=== PATIENT | female | born 1940 | race Caucasian/White ===

== ENCOUNTER 2018-02-12 15:08 | Emergency (ER) | payer MEDICARE, BC ==
[2018-02-12] MEDS ORDERED: Sodium Chloride 0.9% 10 ML Syringe FLUSH PRN (15:19)
--- NOTE | 2018-02-12 15:48 | EDM.PDOC ---
ED HPI GENERAL MEDICAL PROBLEM - General Chief Complaint: Chest Pain Stated Complaint: TOLD TO COME TO THE ER BY DOCTOR Time Seen by Provider: 02/12/18 15:19 Source of Information: Reports: Patient, RN Notes Reviewed - History of Present Illness INITIAL COMMENTS - FREE TEXT/NARRATIVE: 77-year-old lady has been transferred here from [facility] by her regular physician Dr. Yun. She has been having what sounds like accelerated unstable angina over the past couple of weeks. She has been having 3 to 4 minute episodes of chest pain with very minimal exertion such as making a bad or showering that typically have not caused chest discomfort in the past. She does have history of hypertension, coronary artery disease, has had previous IL many years ago, has multiple stents. She has hx of type 2 diabetes, is on multiple meds for Htn, ASA, plavix, metformin, lipitor in addition to her other meds. She has no chest pain at this time. No abdominal pain, no nausea vomiting. History of prior gastric hemorrhage history of prior ischemic bowel. Chest Pain Score (Numeric/FACES): 0 - Related Data Allergies Allergy/AdvReac Type Severity Reaction Status Date / Time ticlopidine Allergy Unknown Cannot Verified 02/12/18 15:20 Remember Home Meds: Home Meds Aspirin [Halfprin] 81 mg PO DAILY 01/08/14 [History] Clopidogrel [Plavix] 75 mg PO DAILY 01/08/14 [History] Levothyroxine [Synthroid] 50 mcg PO DAILY 01/08/14 [History] Metoprolol Tartrate 50 mg PO DAILY 01/08/14 [History] Omeprazole [Prilosec] 40 mg PO BID 01/08/14 [History] amLODIPine Besylate [Amlodipine Besylate] 2.5 mg PO DAILY 01/08/14 [History] atorvaSTATin [Lipitor] 40 mg PO DAILY 01/08/14 [History] metFORMIN [Glucophage] 1,000 mg PO BID 01/08/14 [History] Calcium Carbonate [Calcium] 600 mg PO DAILY 06/03/16 [History] Furosemide [Lasix] 40 mg PO DAILY 06/03/16 [History] Lisinopril 40 mg PO DAILY 06/03/16 [History] Multivitamin [Multivitamins] 1 cap PO DAILY 06/03/16 [History] Past Medical History HEENT History: Reports: Cataract Cardiovascular History: Reports: CAD, High Cholesterol, Hypertension, [place] Gastrointestinal History: Reports: GERD, Other (See Below) TRADE SPECIALIST History: Reports: Musculoskeletal History: Reports: Osteoarthritis, Osteoporosis Endocrine/Metabolic History: Reports: Diabetes, Type II, Hypothyroidism Hematologic History: Reports: Blood Transfusion(s) - Past Surgical History HEENT Surgical History: Reports: Cataract Surgery, Oral Surgery Cardiovascular Surgical History: Reports: Coronary Artery Stent GI Surgical History: Reports: Hernia, Abdominal, Other (See Below) Female Surgical History: Reports: Section, Hysterectomy, Salpingo- Oophorectomy Social & Family History - Living Situation & Occupation Living situation: Reports: , with Spouse, with Family Occupation: Employed ED ROS GENERAL - Review of Systems Review Of Systems: See Below Constitutional: Denies: Fever, Chills, Weakness HEENT: Denies: Throat Pain Respiratory: Denies: Shortness of Breath, Wheezing, Pleuritic Chest Pain Cardiovascular: Reports: Chest Pain (Intermittent for the last 2-3 weeks). Denies: Dyspnea on Exertion, Lightheadedness GI/Abdominal: Denies: Abdominal Pain, Nausea, Vomiting Musculoskeletal: Reports: Arm Pain (When she does get chest discomfort does radiate to the left shoulder and left arm). Denies: Neck Pain, Shoulder Pain, Leg Pain Skin: Denies: Rash Neurological: Denies: Numbness, Tingling, Trouble Speaking, Difficulty Walking, Weakness ED EXAM, GENERAL - Physical Exam Exam: See Below General Appearance: Alert, No Apparent Distress Eye Exam: Bilateral Eye: PERRL Throat/Mouth: Normal Inspection, Normal Oropharynx Head: Atraumatic. No: Facial Swelling Neck: Supple, Full Range of Motion Respiratory/Chest: No Respiratory Distress, Lungs Clear, Normal Breath Sounds Cardiovascular: Regular Rate, Rhythm GI/Abdominal: Soft, Non-Tender Back Exam: No: CVA Tenderness (L), CVA Tenderness (R) Extremities: Normal Inspection. No: Pedal Edema, Leg Pain Neurological: Alert, Oriented, No Motor/Sensory Deficits Skin Exam: Warm, Dry, Normal Color, No Rash EKG INTERPRETATION EKG Date: 02/12/18 Rhythm: NSR Kincaid: Normal P-Wave: Present QRS: LBBB ST-T: Depressed (T wave inversion and st depression V5 and V6) Course - Vital Signs Last Recorded V/S: Last Vital Signs Temp 97.9 F 02/12/18 15:20 Pulse 64 02/12/18 17:23 Resp 14 02/12/18 15:20 BP 185/74 H 02/12/18 17:23 Pulse Ox 100 02/12/18 15:20 - Orders/Labs/Meds Orders: Active Orders 24 hr Category Date Time Status EKG 12 Lead [EKG Documentation Completion] [RC] STAT Care 02/12/18 15:20 Active Peripheral IV Care [RC] . DIRECTED Care 02/12/18 15:21 Active Chest 1V Frontal [CR] Stat Exams 02/12/18 15:20 Taken Peripheral IV Insertion Adult [OM.PC] Stat Oth 02/12/18 15:21 Ordered Labs: Laboratory Tests 02/12/18 02/12/18 Range/Units 15:40 15:40 WBC 7.60 (3.98-10.04) K/mm3 RBC 4.78 (3.98-5.22) M/mm3 Hgb 14.5 (11.2-15.7) gm/L Hct 44.6 (34.1-44.9) % MCV 93.3 (79.4-94.8) fl MCH 30.3 (25.6-32.2) pg MCHC 32.5 (32.2-35.5) g/dl RDW Std Deviation 48.0 H (36.4-46.3) fL Plt Count 196 (182-369) K/mm3 MPV 10.8 (9.4-12.3) fl Neut % (Auto) 61.6 (34.0-71.1) % Lymph % (Auto) 26.7 (19.3-51.7) % Beaver % (Auto) 9.5 (4.7-12.5) % Eos % (Auto) 1.6 (0.7-5.8) Baso % (Auto) 0.3 (0.1-1.2) % Neut # (Auto) 4.69 (1.56-6.13) K/mm3 Lymph # (Auto) 2.03 (1.18-3.74) K/mm3 Beaver # (Auto) 0.72 H (0.24-0.36) K/mm3 Eos # (Auto) 0.12 (0.04-0.36) K/mm3 Baso # (Auto) 0.02 (0.01-0.08) K/mm3 Sodium 141 (136-145) mEq/L Potassium 3.8 (3.5-5.1) mEq/L Chloride 101 (98-107) mEq/L Carbon Dioxide 31 (21-32) mEq/L Anion Gap 12.8 (5-15) BUN 27 H (7-18) mg/dL Creatinine 1.0 (0.55-1.02) mg/dL Est Cr Clr Drug Dosing 45.50 mL/min Estimated GFR (MDRD) 54 (>60) mL/min BUN/Creatinine Ratio 27.0 H (14-18) Glucose 117 H (83-115) mg/dL Calcium 10.0 (8.5-10.1) mg/dL Total Bilirubin 0.6 (0.2-1.0) mg/dL AST 24 (15-37) U/L ALT 30 (14-59) U/L Alkaline Phosphatase 128 H (46-116) U/L Troponin I < 0.017 (0.00-0.056) ng/mL Total Protein 8.1 (6.4-8.2) g/dl Albumin 4.2 (3.4-5.0) g/dl Globulin 3.9 gm/dL Albumin/Globulin Ratio 1.1 (1-2) Meds: Medications Discontinued Medications Generic Name Dose Route Start Last Admin Trade Name Freq PRN Reason Stop Dose Admin Heparin Sodium (Porcine) 4,000 units 02/12/18 17:35 02/12/18 17:52 Heparin Sodium IVPUSH 02/12/18 17:36 4,000 units ONETIME ONE Administration Heparin Sodium/Dextrose 25,000 units in 500 mls @ 16 mls/hr 02/12/18 17:45 17:52 Heparin 25,000 Units In D5w 500 Ml IV 800 units/hr STAT REYNALDO 16 mls/hr Administration Protocol 800 UNITS/HR Metoprolol Tartrate 50 mg 02/12/18 17:10 02/12/18 17:23 Lopressor PO 02/12/18 17:11 50 mg ONETIME ONE Administration Sodium Chloride 10 ml 02/12/18 15:19 02/12/18 15:52 Saline Flush FLUSH 10 ml ASDIRECTED PRN Administration Keep Vein Open - Re-Assessments/Exams Free Text/Narrative Re-Assessment/Exam: 02/12/18 19:08 had requested patient be evaluated here, admitted for observation and cardiac stress test. While awaiting labs family decided they would like to have patient transfered to [facility] based on hx of known CAD, IL 22 years ago, hx of prior stents, hx of Ischemic bowel, hx of prior severe GI Hemorrhage. I have discussed with Dr Almaraz, Hospitalist [facility] who does accept patient in transfer. She remains pain free while in the ED, sinus rythm, no ectopy, troponin normal, CXR normal. Dr Almaraz does request we give a heparin bolus and start on heparin drip which was done. Departure - Departure Time of Disposition: 17:45 Disposition: DC/Tfer to [facility] 02 Reason for Transfer *Q: Other Condition: Fair Clinical Impression: Accelerating angina Referrals: Keven Yun MD [Primary Care Provider] - Forms: ED Department Discharge - My Orders Last 24 Hours: My Active Orders 02/12/18 15:20 EKG 12 Lead [EKG Documentation Completion] [RC] STAT Chest 1V Frontal [CR] Stat 02/12/18 15:21 Peripheral IV Care [RC] . DIRECTED Peripheral IV Insertion Adult [OM.PC] Stat - Assessment/Plan Last 24 Hours: My Active Orders 02/12/18 15:20 EKG 12 Lead [EKG Documentation Completion] [RC] STAT Chest 1V Frontal [CR] Stat 02/12/18 15:21 Peripheral IV Care [RC] . DIRECTED Peripheral IV Insertion Adult [OM.PC] Stat
[2018-02-12] MEDS ORDERED: Metoprolol Tartrate 50 MG Tab PO ONE (17:10)
[2018-02-12 17:25] VITALS: BP 185/74
[2018-02-12] MEDS ORDERED: Heparin Sodium 5,000 Units/ML Vial IVPUSH ONE (17:35)
[2018-02-12] MEDS ORDERED: Heparin Sodium/D5W 25,000 UNITS/500 ML BAG IV SCH (17:45)
--- NOTE | 2018-02-13 08:35 | CR ---
Chest: Portable view of the chest was obtained. Comparison: Prior chest x-ray of 01/08/14. Heart is slightly enlarged. Tortuous thoracic aorta is seen. Lungs are clear without acute parenchymal change. Bony structures are grossly intact. Lungs appears hyperinflated compatible with emphysematous change. Impression: 1. Lungs are hyperinflated suggesting emphysematous change. 2. Heart size mildly enlarged. 3. Nothing acute is otherwise seen on portable chest x-ray. Diagnostic code #3
== END 2018-02-12 18:20 ==
LOC: JD.ED 15:08
DX: I20.0 Unstable angina (principal); E78.00 Pure hypercholesterolemia, unspecified; I10 Essential (primary) hypertension; K21.9 Gastro-esophageal reflux disease without esophagitis; E03.9 Hypothyroidism, unspecified; E11.9 Type 2 diabetes mellitus without complications; Z88.8 Allergy status to other drugs, medicaments and biological substances; Z79.82 Long term (current) use of aspirin; Z79.899 Other long term (current) drug therapy; Z79.01 Long term (current) use of anticoagulants
CPT/HCPCS: 36415; 71045; 80053; 84484; 85025; 93005; 96365; 99285; A9270; J1644; J7050; 93010

== ENCOUNTER 2018-06-05 06:52 | Day surgery (SDC) | payer MEDICARE, BC ==
[~2018-06-05 06:52] MED LIST: Lactated Ringers 1,000 ML IV SCH; Lidocaine 1%/Sod Bicarbonate in NS 8.4% 1 ML Syringe IDERM PRN; Sodium Chloride 0.9% 10 ML Syringe FLUSH PRN
--- NOTE | 2018-06-05 07:26 | PCM.PREANE ---
Preanesthetic Assessment - Procedure Proposed Procedure: excision of skin lesions forehead - Anesthesia/Transfusion/Family Hx Anesthesia History: Prior Anesthesia Without Reaction Family History of Anesthesia Reaction: No Transfusion History: Prior Transfusion Without Reaction - Review of Systems General: No Symptoms Pulmonary: No Symptoms Cardiovascular: No Symptoms Gastrointestinal: No Symptoms Neurological: No Symptoms Other: Reports: Thyroid Problems - Physical Assessment NPO Status Date: 06/04/18 NPO Status Time: 19:00 Pulse: 67 O2 Sat by Pulse Oximetry: 99 Respiratory Rate: 16 Blood Pressure: 154/65 Temperature: 98.3 F Height: 5 ft 5 in Weight: 68 kg ASA Class: 3 Mental Status: Alert & Oriented x3 Airway Class: Mallampati = 1 Dentition: Reports: Dentures (top and 1 tooth on thte bottom) Thyro-Mental Finger Breadths: 3 Mouth Opening Finger Breadths: 3 ROM/Head Extension: Full Lungs: Clear to Auscultation, Normal Respiratory Effort Cardiovascular: Regular Rate, Regular Rhythm - Allergies Allergies/Adverse Reactions: Allergies Allergy/AdvReac Type Severity Reaction Status Date / Time ticlopidine Allergy Unknown Cannot Verified 06/04/18 13:22 Remember carvedilol [From Coreg] Allergy Lightheaded Verified 06/04/18 13:22 ness - Blood Blood Available: No - Anesthesia Plan Beta Papa: Metoprolol Med Last Dose Date: 06/05/18 Med Last Dose Time: 06:00 - Acknowledgements Anesthesia Type Planned: MAC Pt an Appropriate Candidate for the Planned Anesthesia: Yes Alternatives and Risks of Anesthesia Discussed w Pt/Guardian: Yes Pt/Guardian Understands and Agrees with Anesthesia Plan: Yes PreAnesthesia Questionnaire HEENT History: Reports: Hard of Hearing, Impaired Vision Other HEENT History: wears eyeglasses and hearing aids Cardiovascular History: Reports: Afib, CAD, High Cholesterol, Hypertension, [place], Stents (stent in january 2018), Other (See Below) Other Cardiovascular History: Raynaud's phenomenon. 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 Hematologic History: Reports: Anemia, Blood Transfusion(s) Immunologic History: Reports: None Oncologic (Cancer) History: Reports: None Dermatologic History: Reports: None - Infectious Disease History Infectious Disease History: Reports: Chicken Pox, Measles, Shingles - Past Surgical History Head Surgeries/Procedures: Reports: None HEENT Surgical History: Reports: Cataract Surgery, Oral Surgery Cardiovascular Surgical History: Reports: Coronary Artery Stent, Vascular Surgery Other Cardiovascular Surgeries/Procedures: angiogram. Angioplasty with 2 stents --jan 2018 Respiratory Surgical History: Reports: None GI Surgical History: Reports: Colon, EGD, Hernia, Abdominal Other GI Surgeries/Procedures: 3 abdominal surgeries, perforated bowel, bowel removed. Female Surgical History: Reports: Section, Hysterectomy, Salpingo- Oophorectomy Endocrine Surgical History: Reports: None Neurological Surgical History: Reports: C-Spine Musculoskeletal Surgical History: Reports: ORIF Other Musculoskeletal Surgeries/Procedures:: neck surgery. Oncologic Surgical History: Reports: None Dermatological Surgical History: Reports: None - SUBSTANCE USE Smoking Status *Q: Former Smoker (quit 1995) Tobacco Use Within Last Twelve Months: No Second Hand Smoke Exposure: No Days Per Week of Alcohol Use: 0 Recreational Drug Use History: No - HOME MEDS Home Medications: Home Meds Clopidogrel [Plavix] 75 mg PO DAILY 01/08/14 [History] Multivitamin [Multivitamins] 1 cap PO DAILY 06/03/16 [History] Apixaban [Eliquis] 5 mg PO BID 03/11/18 [History] Nitroglycerin 0.4 mg SL ASDIRECTED PRN 03/11/18 [History] Calcium Carbonate/Vitamin D3 [Calcium 600 + Vit D 400 Softgl] 1 cap PO DAILY [History] Lactobacillus Reuteri [Biogaia Gastrus] 1 tab PO DAILY 05/07/18 [History] Levothyroxine 75 mcg PO DAILY 05/07/18 [History] Pantoprazole [ProTONIX] 40 mg PO DAILY 05/07/18 [History] Furosemide [Lasix] 20 mg PO DAILY 06/04/18 [History] Metoprolol Tartrate 12.5 mg PO BID 06/04/18 [History] atorvaSTATin Calcium [Lipitor] 40 mg PO DAILY 06/04/18 [History] Losartan [Cozaar] 50 mg PO DAILY 06/05/18 [History] - CURRENT (IN HOUSE) MEDS Current Meds: Current Medications Lactated Ringer's (Ringers, Lactated) 1,000 mls @ 125 mls/hr IV ASDIRECTED REYNALDO Lidocaine/Sodium Bicarbonate (Buffered Lidocaine 1% In Ns 8.4%) 0.25 ml IDERM ONETIME PRN PRN Reason: Prior to IV Start Sodium Chloride (Saline Flush) 10 ml FLUSH ASDIRECTED PRN PRN Reason: Keep Vein Open
[2018-06-05] MEDS ORDERED: Midazolam 1 MG/ML 2 ML SDV ONE (07:33)
[2018-06-05] MEDS ORDERED: fentaNYL 100 MCG/2 ML SDV ONE (07:33)
[2018-06-05] MEDS ORDERED: Lidocaine 1% with EPINEPHrine 1:100,000 20 ML MDV ONE (08:00)
[2018-06-05] MEDS ORDERED: Bacitracin Oint 15 GM Tube ONE (08:32)
--- NOTE | 2018-06-05 08:56 | PCM.OPNOTE ---
- General Post-Op/Procedure Note Date of Surgery/Procedure: 06/05/18 Operative Procedure(s): excision of forehead lesions Findings: forehead raised lesions on right and left forehead, each with cutaneous Pre Op Diagnosis: forehead skin lesions Post-Op Diagnosis: same Anesthesia Technique: Moderate Sedation Primary Surgeon: Isi Don Anesthesia Provider: Steffen Chandra Pathology: 1. Right forehead lesion 2. Left forehead lesion Fluid Replacement, Intraop: 400 EBL in mLs: 5 Complications: None apparent Condition: Good
--- NOTE | 2018-06-05 08:57 | PCM48HPAN ---
Post Anesthesia Note - EVALUATION WITHIN 48HRS OF ANESTHETIC Vital Signs in Normal Range: Yes Patient Participated in Evaluation: Yes Respiratory Function Stable: Yes Airway Patent: Yes Cardiovascular Function Stable: Yes Hydration Status Stable: Yes Pain Control Satisfactory: Yes Nausea and Vomiting Control Satisfactory: Yes Mental Status Recovered: Yes Pulse Rate: 64 SaO2: 93 Resp Rate: 15 Temperature: 98.4 F Blood Pressure: 142/52
--- NOTE | 2018-06-05 09:03 | PCM.PRNOTE ---
- Free Text/Narrative Note: Operative Report Date of surgery: June 05, 2018 Preoperative diagnosis: forehead skin lesions Postoperative diagnosis: same Procedure: excision forehead skin lesions Surgeon: Dr. Isi Don Anesthesia: Moderate sedation with monitored anesthesia care (due to her multiple medical comorbidities including recent cardiac stenting) Investigator: Steffen Chandra CRNA Estimated blood loss: 5 mL IV fluids: 400 mL Urine output: 0 mL Drains and lines: None Findings: 6 mm x 10 mm irregular lesion on the right forehead with cutaneous horn covering the lesion, 5 mm x 4 mm cutaneous horn covered lesion on the left forehead Pathology: . 1. Right forehead lesion with short stitch and appear margin and long stitch on lateral margin 2. Left forehead lesion Indication for the procedure: The patient is a 77-year-old female presents by office complaining of skin lesions on her forehead. She is concerned about malignant potential. She also dislikes the cord appearance of these lesions. She is requesting removal. We discussed doing that excision with very light sedation in the operating room as she has anticoagulation for her medical comorbidities. In addition, she has had cardiac stenting within the last 6 months and it is not advisable to stop Plavix at this time. We discussed risks of bleeding and infection, and her written consent was obtained. Description of the procedure: The patient was taken back to the operating room and placed in supine position on the operating table. Light sedation was administered. The patient was then prepped and draped in standard surgical fashion and a timeout was performed. We began by infiltrating local anesthetic to the right forehead lesion. This area was then marked with an elliptical incision 6mm x 24mm. A scalpel was used to incise the skin and into combination of sharp dissection with the scalpel and the Bovie device was used to remove the lesion. This was marked and sent for pathology. Hemostasis was achieved using the Bovie device and pressure. The tissue defect was 2 mm deep. We then turned our attention to the left forehead lesion. It was measured and marked with an elliptical incision 4 mm x 12 mm and then the skin was infiltrated with local anesthetic. We proceeded to excise the lesion. Using combination of the scalpel and Bovie device. Hemostasis was achieved using the Bovie device. The tissue defect was 2 mm deep. We again held pressure in this area for added hemostasis. The incisions were closed using interrupted 5-0 nylon sutures. The sutures were covered with bacitracin and a dry dressing. The patient tolerated the procedure well, was transported to recovery area in stable condition Isi Don MD General Surgery
[2018-06-05 10:34] VITALS: BP 130/55
== END 2018-06-05 09:40 | disposition home or self-care (01) ==
LOC: JD.SDS 06:52
PROVIDERS: ATTEND Surgery
DX: C44.329 Squamous cell carcinoma of skin of other parts of face (principal); L57.0 Actinic keratosis; J44.9 Chronic obstructive pulmonary disease, unspecified; K21.9 Gastro-esophageal reflux disease without esophagitis; E11.51 Type 2 diabetes mellitus with diabetic peripheral angiopathy without gangrene; E78.00 Pure hypercholesterolemia, unspecified; E78.5 Hyperlipidemia, unspecified; E03.9 Hypothyroidism, unspecified; I10 Essential (primary) hypertension; I25.10 Atherosclerotic heart disease of native coronary artery without angina pectoris; I25.2 Old myocardial infarction; I48.91 Unspecified atrial fibrillation; M19.90 Unspecified osteoarthritis, unspecified site; M81.0 Age-related osteoporosis without current pathological fracture; D64.9 Anemia, unspecified; Z79.02 Long term (current) use of antithrombotics/antiplatelets; Z79.890 Hormone replacement therapy; Z79.899 Other long term (current) drug therapy; Z88.8 Allergy status to other drugs, medicaments and biological substances; Z87.891 Personal history of nicotine dependence
CPT/HCPCS: 11442; 11643; A9270; J2250; J3010; J7120; 00300

== ENCOUNTER 2018-06-29 07:05 | Day surgery (SDC) | payer MEDICARE, BC ==
[~2018-06-29 07:05] MED LIST changes: +Lidocaine 1% 2 ML ONE; +Midazolam 1 MG/ML 2 ML SDV ONE; +Propofol 200 MG/20 ML SDV ONE
[2018-06-29] MEDS ORDERED: fentaNYL 100 MCG/2 ML SDV ONE (07:06)
[2018-06-29] MEDS ORDERED: Bupivacaine 0.5% 30 ML SDV ONE (07:09)
[2018-06-29] MEDS ORDERED: Lidocaine 1% with EPINEPHrine 1:100,000 20 ML MDV ONE (07:09)
--- NOTE | 2018-06-29 07:27 | PCM.PREANE ---
Preanesthetic Assessment - Anesthesia/Transfusion/Family Hx Anesthesia History: Prior Anesthesia Without Reaction Family History of Anesthesia Reaction: No Transfusion History: Prior Transfusion Without Reaction - Review of Systems General: No Symptoms Pulmonary: No Symptoms Cardiovascular: No Symptoms Gastrointestinal: No Symptoms Neurological: No Symptoms Other: Reports: None - Physical Assessment NPO Status Date: 06/28/18 NPO Status Time: 20:00 Pulse: 62 O2 Sat by Pulse Oximetry: 94 Respiratory Rate: 16 Blood Pressure: 159/59 Temperature: 98.8 C ASA Class: 3 Mental Status: Alert & Oriented x3 Airway Class: Mallampati = 2 Dentition: Reports: Dentures, Partial (upper denture, lower partial) Thyro-Mental Finger Breadths: 3 Mouth Opening Finger Breadths: 3 ROM/Head Extension: Full Lungs: Clear to Auscultation, Normal Respiratory Effort Cardiovascular: Regular Rate, Regular Rhythm (pt states she does have atrial fib at times) - Allergies Allergies/Adverse Reactions: Allergies Allergy/AdvReac Type Severity Reaction Status Date / Time ticlopidine Allergy Unknown Cannot Verified 06/26/18 09:49 Remember carvedilol [From Coreg] Allergy Lightheaded Verified 06/26/18 09:49 ness - Anesthesia Plan Beta Papa: Metoprolol Med Last Dose Date: 06/29/18 Med Last Dose Time: 06:00 - Acknowledgements Anesthesia Type Planned: MAC Pt an Appropriate Candidate for the Planned Anesthesia: Yes Alternatives and Risks of Anesthesia Discussed w Pt/Guardian: Yes Pt/Guardian Understands and Agrees with Anesthesia Plan: Yes PreAnesthesia Questionnaire HEENT History: Reports: Hard of Hearing, Impaired Vision Other HEENT History: wears eyeglasses and hearing aids Cardiovascular History: Reports: Afib (pt states afib is intermittent), CAD, High Cholesterol, Hypertension, [place] (1995), Stents, Other (See Below) Other Cardiovascular History: Raynaud's phenomenon. 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 Hematologic History: Reports: Anemia, Blood Transfusion(s) Immunologic History: Reports: None Oncologic (Cancer) History: Reports: None, Squamous Cell Carcinoma Dermatologic History: Reports: None - Infectious Disease History Infectious Disease History: Reports: Chicken Pox, Measles, Shingles - Past Surgical History Head Surgeries/Procedures: Reports: None HEENT Surgical History: Reports: Cataract Surgery, Oral Surgery Cardiovascular Surgical History: Reports: Coronary Artery Stent, Vascular Surgery Other Cardiovascular Surgeries/Procedures: angiogram. Angioplasty with 2 stents --jan 2018 Respiratory Surgical History: Reports: None GI Surgical History: Reports: Colon, EGD, Hernia, Abdominal Other GI Surgeries/Procedures: 3 abdominal surgeries, perforated bowel, bowel removed. Female Surgical History: Reports: Section, Hysterectomy, Salpingo- Oophorectomy Endocrine Surgical History: Reports: None Neurological Surgical History: Reports: C-Spine Musculoskeletal Surgical History: Reports: ORIF Other Musculoskeletal Surgeries/Procedures:: neck surgery. Oncologic Surgical History: Reports: None Dermatological Surgical History: Reports: Other (See Below) - SUBSTANCE USE Smoking Status *Q: Former Smoker Recreational Drug Use History: No - HOME MEDS Home Medications: Home Meds Clopidogrel [Plavix] 75 mg PO DAILY 01/08/14 [History] Multivitamin [Multivitamins] 1 cap PO DAILY 06/03/16 [History] Apixaban [Eliquis] 5 mg PO BID 03/11/18 [History] Nitroglycerin 0.4 mg SL ASDIRECTED PRN 03/11/18 [History] Calcium Carbonate/Vitamin D3 [Calcium 600 + Vit D 400 Softgl] 1 cap PO DAILY [History] Lactobacillus Reuteri [Biogaia Gastrus] 1 tab PO DAILY 05/07/18 [History] Levothyroxine 75 mcg PO DAILY 05/07/18 [History] Pantoprazole [ProTONIX] 40 mg PO DAILY 05/07/18 [History] Furosemide [Lasix] 20 mg PO DAILY 06/04/18 [History] Metoprolol Tartrate 12.5 mg PO BID 06/04/18 [History] atorvaSTATin Calcium [Lipitor] 40 mg PO DAILY 06/04/18 [History] Losartan [Cozaar] 50 mg PO DAILY 06/05/18 [History] - CURRENT (IN HOUSE) MEDS Current Meds: Current Medications Lactated Ringer's (Ringers, Lactated) 1,000 mls @ 125 mls/hr IV ASDIRECTED REYNALDO Stop: 06/29/18 23:00 Lidocaine/Sodium Bicarbonate (Buffered Lidocaine 1% In Ns 8.4%) 0.25 ml IDERM ONETIME PRN PRN Reason: Prior to IV Start Stop: 06/29/18 18:00 Sodium Chloride (Saline Flush) 10 ml FLUSH ASDIRECTED PRN PRN Reason: Keep Vein Open Stop: 06/29/18 18:00 Discontinued Medications Bupivacaine HCl (Marcaine 0.5%) Confirm Administered Dose 30 ml .ROUTE .STK-MED ONE Stop: 06/29/18 07:10 Fentanyl (Sublimaze) Confirm Administered Dose 100 mcg .ROUTE .STK-MED ONE Stop: 06/29/18 07:07 Lidocaine HCl (Xylocaine-Mpf 1%) Confirm Administered Dose 2 mls @ as directed .ROUTE .STK-MED ONE Stop: 06/29/18 07:05 Lidocaine HCl (Xylocaine-Mpf 1%) Confirm Administered Dose 2 mls @ as directed .ROUTE .STK-MED ONE Stop: 06/29/18 07:05 Lidocaine/Epinephrine (Xylocaine 1% With Epinephrine 1:100,000) Confirm Administered Dose 20 ml .ROUTE .STK-MED ONE Stop: 06/29/18 07:10 Midazolam HCl (Versed 1 Mg/Ml) Confirm Administered Dose 2 mg .ROUTE .STK-MED ONE Stop: 06/29/18 07:06 Propofol (Diprivan 20 Ml) Confirm Administered Dose 200 mg .ROUTE .STK-MED ONE Stop: 06/29/18 07:05
[2018-06-29] MEDS ORDERED: Bacitracin Oint 15 GM Tube ONE (07:35)
--- NOTE | 2018-06-29 09:13 | PCM.OPNOTE ---
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
--- NOTE | 2018-06-29 09:17 | PCM.PRNOTE ---
- Free Text/Narrative Note: Operative Report Date of surgery: June 29, 2018 Preoperative diagnosis: . 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 Isi Don Anesthesia: [facility] [place] [employer] Operator: . Yocasta Yoon CRNA Estimated blood loss: 10 mL IV fluids: 750 mL Urine output: 0 mL Drains and lines: None Findings: Area of previous excision on the right forehead with scab centrally Pathology: . Squamous cell carcinoma with surrounding skin Indication for the procedure: . The patient is a 77-year-old lady who had presented to my office complaining of a cutaneous horns lesion on her right forehead. She wanted this removed. We excised the lesion, but pathology returned results of squamous cell carcinoma with positive margins. The patient was counseled for reexcision and frozen section. Her written consent was obtained. Description of the procedure: The patient was seen back to the operating room and placed in supine position on the operating table. She had successful induction of MAC anesthesia. She was prepped and draped in standard surgical fashion and a timeout was performed. We began by injecting local anesthetic of 1% lidocaine with epinephrine and the lesion marked on her right forehead. The skin was then excised using a 15 blade scalpel in an elliptical fashion around the area of the previous scar containing the scab and some surrounding normal skin. Care was taken to excise tissue on the deep margin. Hemostasis was then achieved using pressure and the Bovie device. The specimen was marked and sent to pathology. Frozen section revealed negative margins. The wound was then closed using interrupted simple 5-0 nylon sutures. Bacitracin and a dry dressing was applied. The patient tolerated the procedure well. She was awakened from MAC anesthesia and transported to the recovery area in stable condition. Isi Don MD General Surgery
--- NOTE | 2018-06-29 10:00 | PCM48HPAN ---
Post Anesthesia Note - EVALUATION WITHIN 48HRS OF ANESTHETIC Vital Signs in Normal Range: Yes Patient Participated in Evaluation: Yes Respiratory Function Stable: Yes Airway Patent: Yes Cardiovascular Function Stable: Yes Hydration Status Stable: Yes Pain Control Satisfactory: Yes Nausea and Vomiting Control Satisfactory: Yes Mental Status Recovered: Yes Pulse Rate: 60 SaO2: 94 Resp Rate: 14 Temperature: 98.8 C Blood Pressure: 124/57 Pulse Rate: 60
[2018-06-29 11:01] VITALS: BP 145/59
== END 2018-06-29 09:55 | disposition home or self-care (01) ==
LOC: JD.SDS 07:05
PROVIDERS: ATTEND Surgery
DX: C44.329 Squamous cell carcinoma of skin of other parts of face (principal); I10 Essential (primary) hypertension; E11.9 Type 2 diabetes mellitus without complications; J44.9 Chronic obstructive pulmonary disease, unspecified; I48.0 Paroxysmal atrial fibrillation; E03.9 Hypothyroidism, unspecified; I25.10 Atherosclerotic heart disease of native coronary artery without angina pectoris; E78.2 Mixed hyperlipidemia; M19.90 Unspecified osteoarthritis, unspecified site; Z87.891 Personal history of nicotine dependence; Z79.01 Long term (current) use of anticoagulants; Z79.02 Long term (current) use of antithrombotics/antiplatelets; Z79.899 Other long term (current) drug therapy; Z79.890 Hormone replacement therapy; Z88.8 Allergy status to other drugs, medicaments and biological substances
CPT/HCPCS: 11644; 82962; A9270; J2001; J2250; J2704; J3010; J7120; 00300; 88305; J3490

== ENCOUNTER 2018-07-24 20:41 | Emergency (ER) | payer MEDICARE, BC ==
[2018-07-24 21:56] VITALS: BP 182/81
[2018-07-24] MEDS ORDERED: guaiFENesin 100 MG/5 ML Soln 10 ML UD Cup PO ONE (23:23)
[2018-07-24] MEDS ORDERED: cefTRIAXone 1 GM, Lidocaine 1% 2.1 ML IM SCH ×2 (23:45)
--- NOTE | 2018-07-25 00:01 | EDM.PDOC ---
ED HPI GENERAL MEDICAL PROBLEM - General Chief Complaint: Respiratory Problem Stated Complaint: COUGH FEVER Time Seen by Provider: 07/24/18 22:21 Source of Information: Reports: Patient, Family History Limitations: Reports: No Limitations - History of Present Illness INITIAL COMMENTS - FREE TEXT/NARRATIVE: This is a 77-year-old female. Onset of fever up to 102 today with a cough and mild runny nose. She complains of being short of breath and a mild headache and a very frequent cough because of a tickle in her throat. She denies a sore throat. She does have a runny nose. She denies any nausea vomiting or diarrhea. Her cough is essentially nonproductive. She did have her flu shot. She denies any other acute symptoms. 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 Headache Pain Score (Numeric/FACES): 6 - Related Data Allergies Allergy/AdvReac Type Severity Reaction Status Date / Time ticlopidine Allergy Unknown Cannot Verified 06/26/18 09:49 Remember carvedilol [From Coreg] AdvReac Lightheaded Verified 06/29/18 08:37 ness Home Meds: Home Meds Clopidogrel [Plavix] 75 mg PO DAILY 01/08/14 [History] Multivitamin [Multivitamins] 1 cap PO DAILY 06/03/16 [History] Apixaban [Eliquis] 5 mg PO BID 03/11/18 [History] Nitroglycerin 0.4 mg SL ASDIRECTED PRN 03/11/18 [History] Calcium Carbonate/Vitamin D3 [Calcium 600 + Vit D 400 Softgl] 1 cap PO DAILY [History] Lactobacillus Reuteri [Biogaia Gastrus] 1 tab PO DAILY 05/07/18 [History] Levothyroxine 75 mcg PO DAILY 05/07/18 [History] Pantoprazole [ProTONIX] 40 mg PO DAILY 05/07/18 [History] Furosemide [Lasix] 20 mg PO DAILY PRN 06/04/18 [History] Metoprolol Tartrate 12.5 mg PO BID 06/04/18 [History] atorvaSTATin Calcium [Lipitor] 40 mg PO DAILY 06/04/18 [History] Losartan [Cozaar] 50 mg PO DAILY 06/05/18 [History] Amoxicillin/Potassium Clav [Augmentin 875-125 Tablet] 1 each PO BID #14 tablet 07/25/18 [Rx] Benzonatate [Tessalon Perle] 100 mg PO Q8H PRN #15 capsule 07/25/18 [Rx] Past Medical History HEENT History: Reports: Hard of Hearing, Impaired Vision Other HEENT History: wears eyeglasses and hearing aids Cardiovascular History: Reports: Afib, CAD, High Cholesterol, Hypertension, SC, Stents, Other (See Below) Other Cardiovascular History: Raynaud's phenomenon. 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 Hematologic History: Reports: Anemia, Blood Transfusion(s) Immunologic History: Reports: None Oncologic (Cancer) History: Reports: None, Squamous Cell Carcinoma Dermatologic History: Reports: None - Infectious Disease History Infectious Disease History: Reports: Chicken Pox, Measles, Shingles - Past Surgical History Head Surgeries/Procedures: Reports: None HEENT Surgical History: Reports: Cataract Surgery, Oral Surgery Cardiovascular Surgical History: Reports: Coronary Artery Stent, Vascular Surgery Other Cardiovascular Surgeries/Procedures: angiogram. Angioplasty with 2 stents --jan 2018 Respiratory Surgical History: Reports: None GI Surgical History: Reports: Colon, EGD, Hernia, Abdominal Other GI Surgeries/Procedures: 3 abdominal surgeries, perforated bowel, bowel removed. Female Surgical History: Reports: Section, Hysterectomy, Salpingo- Oophorectomy Endocrine Surgical History: Reports: None Neurological Surgical History: Reports: C-Spine Musculoskeletal Surgical History: Reports: ORIF Other Musculoskeletal Surgeries/Procedures:: neck surgery. Oncologic Surgical History: Reports: None Dermatological Surgical History: Reports: Other (See Below) Social & Family History - Family History Family Medical History: Noncontributory - Tobacco Use Smoking Status *Q: Former Smoker Used Tobacco, but Quit: Yes Month/Year Tobacco Last Used: 1995 - Caffeine Use Caffeine Use: Reports: Coffee - Recreational Drug Use Recreational Drug Use: No - Living Situation & Occupation Living situation: Reports: , with Spouse, with Family (Son) Occupation: Employed ([employer]) ED ROS GENERAL - Review of Systems Review Of Systems: See Below Constitutional: Reports: Fever, Chills, Malaise HEENT: Reports: Rhinitis Respiratory: Reports: Shortness of Breath, Cough. Denies: Wheezing Cardiovascular: Reports: Chest Pain Endocrine: Reports: No Symptoms GI/Abdominal: Denies: Diarrhea, Nausea, Vomiting : Reports: No Symptoms Musculoskeletal: Reports: No Symptoms Skin: Reports: No Symptoms Neurological: Reports: No Symptoms Psychiatric: Reports: No Symptoms Hematologic/Lymphatic: Reports: No Symptoms ED EXAM, GENERAL - Physical Exam Exam: See Below Exam Limited By: No Limitations General Appearance: Alert, WD/WN, No Apparent Distress Eye Exam: Bilateral Eye: Normal Inspection Ears: Normal External Exam, Normal Canal, Normal TMs Nose: Nasal Drainage Throat/Mouth: Normal Inspection, Normal Lips, Normal Oropharynx, Normal Voice, No Airway Compromise, Other (No significant tonsillar pillar swelling or erythema) Head: Normocephalic Neck: Supple Respiratory/Chest: No Respiratory Distress, Lungs Clear, Normal Breath Sounds, Other (Possibly some coarse breath sounds in the bases but no wheezing rales or rhonchi) Cardiovascular: Regular Rate, Rhythm, No Murmur GI/Abdominal: Soft, Non-Tender Back Exam: Full Range of Motion Extremities: Normal Inspection, Normal Range of Motion Neurological: Alert, Oriented Psychiatric: Normal Affect, Normal Mood Skin Exam: Warm, Dry Course - Vital Signs Last Recorded V/S: Last Vital Signs Temp 102.0 F H 07/24/18 21:53 Pulse 100 07/24/18 21:53 Resp 20 07/24/18 21:53 BP 182/81 H 07/24/18 21:53 Pulse Ox 94 L 07/24/18 21:53 - Orders/Labs/Meds Orders: Active Orders 24 hr Category Date Time Status Chest 2V [CR] Stat Exams 07/24/18 22:31 Taken Labs: Laboratory Tests 07/24/18 Range/Units 22:40 WBC 7.72 (3.98-10.04) K/mm3 RBC 3.90 L (3.98-5.22) M/mm3 Hgb 11.1 L (11.2-15.7) gm/L Hct 35.0 (34.1-44.9) % MCV 89.7 (79.4-94.8) fl MCH 28.5 (25.6-32.2) pg MCHC 31.7 L (32.2-35.5) g/dl RDW Std Deviation 50.8 H (36.4-46.3) fL Plt Count 164 L (182-369) K/mm3 MPV 11.0 (9.4-12.3) fl Neut % (Auto) 71.4 H (34.0-71.1) % Lymph % (Auto) 13.3 L (19.3-51.7) % [place] % (Auto) 13.7 H (4.7-12.5) % Eos % (Auto) 1.0 (0.7-5.8) Baso % (Auto) 0.3 (0.1-1.2) % Neut # (Auto) 5.51 (1.56-6.13) K/mm3 Lymph # (Auto) 1.03 L (1.18-3.74) K/mm3 [place] # (Auto) 1.06 H (0.24-0.36) K/mm3 Eos # (Auto) 0.08 (0.04-0.36) K/mm3 Baso # (Auto) 0.02 (0.01-0.08) K/mm3 Meds: Medications Discontinued Medications Generic Name Dose Route Start Last Admin Trade Name Freq PRN Reason Stop Dose Admin Ceftriaxone Sodium 1 gm/ 0 gm 07/24/18 23:45 07/25/18 00:25 Lidocaine HCl 2.1 ml IM 2.1 inj Q24H REYNALDO Administration Guaifenesin 200 mg 07/24/18 23:23 07/24/18 23:30 Robitussin PO 07/24/18 23:24 200 mg ONETIME ONE Administration - Radiology Interpretation Free Text/Narrative:: Chest x-ray does not show anything absolutely acute but there is some ratiness in the right lower lobe. - Re-Assessments/Exams Free Text/Narrative Re-Assessment/Exam: 07/25/18 00:00 I spoke to the patient and the family regarding the chest x-ray that suggests may be something in the right lower lobe or could just be some scar tissue. I encouraged him to drink lots of fluids and use Tylenol as needed for the fever. I'll place her on some antibiotics and something for her cough. 07/25/18 00:05 The patient was able to leave the emergency department with no difficulty. Departure - Departure Time of Disposition: 00:06 Disposition: Home, Self-Care 01 Condition: Good Clinical Impression: Acute febrile illness Upper respiratory infection Qualifiers: URI type: unspecified URI Qualified Code(s): J06.9 - Acute upper respiratory infection, unspecified Acute bronchitis Qualifiers: Bronchitis organism: unspecified organism Qualified Code(s): J20.9 - Acute bronchitis, unspecified - Discharge Information *PRESCRIPTION DRUG MONITORING PROGRAM REVIEWED*: Not Applicable *COPY OF PRESCRIPTION DRUG MONITORING REPORT IN PATIENT MARILY: Not Applicable Prescriptions: Amoxicillin/Potassium Clav [Augmentin 875-125 Tablet] 1 each PO BID #14 tablet Benzonatate [Tessalon Perle] 100 mg PO Q8H PRN #15 capsule PRN Reason: Cough Instructions: Acute Bronchitis, Adult, [id number], Upper Respiratory Infection, Adult, [id number] Referrals: Keven Yun MD [Primary Care Provider] - Forms: ED Department Discharge Additional Instructions: Drink lots of fluids, use Tylenol as needed for your fever, start the antibiotics tomorrow once you get them, take the Tessalon Perles as needed for your cough, get some Chlor-Trimeton at the pharmacy to help with the congestion and the drainage, rest and sleep as much as possible, follow up with your family doctor this week for recheck or return to the ER if your symptoms worsen - My Orders Last 24 Hours: My Active Orders 07/24/18 22:31 Chest 2V [CR] Stat - Assessment/Plan Last 24 Hours: My Active Orders 07/24/18 22:31 Chest 2V [CR] Stat
--- NOTE | 2018-07-27 08:14 | CR ---
Chest: Two views of the chest were obtained. Comparison: Prior chest x-ray of 05/07/18. Heart size at the upper limits of normal. Tortuous thoracic aorta is seen. Lungs are hyperinflated compatible with emphysematous change. Calcification is noted around the spleen which is stable. Coronary artery calcification is noted. No acute parenchymal change is seen. Central lung markings mildly increased which appear to be chronic. Impression: 1. Emphysematous change. Other incidental findings. Nothing acute is appreciated. Diagnostic code #2
== END 2018-07-25 00:25 | disposition home or self-care (01) ==
LOC: JD.ED 20:41
DX: J20.9 Acute bronchitis, unspecified (principal); J06.9 Acute upper respiratory infection, unspecified; I10 Essential (primary) hypertension; I25.2 Old myocardial infarction; E78.00 Pure hypercholesterolemia, unspecified; K21.9 Gastro-esophageal reflux disease without esophagitis; E11.9 Type 2 diabetes mellitus without complications; E03.9 Hypothyroidism, unspecified; Z79.899 Other long term (current) drug therapy; Z88.8 Allergy status to other drugs, medicaments and biological substances; Z87.891 Personal history of nicotine dependence
CPT/HCPCS: 36415; 71046; 85025; 87804; 96372; 99283; A9270; J0696; J2001

== ENCOUNTER 2018-07-26 13:55 | Emergency (ER) | payer MEDICARE, BC ==
[2018-07-26] MEDS ORDERED: Sodium Chloride 0.9% 10 ML Syringe FLUSH PRN (14:36)
[2018-07-26] MEDS ORDERED: Sodium Chloride 0.9% 1,000 ML IV SCH (14:45)
--- NOTE | 2018-07-26 14:47 | EDM.PDOC ---
ED HPI GENERAL MEDICAL PROBLEM - General Chief Complaint: Respiratory Problem Stated Complaint: SOB Time Seen by Provider: 07/26/18 14:17 Source of Information: Reports: Patient, Family, Old Records, RN Notes Reviewed History Limitations: Reports: No Limitations - History of Present Illness INITIAL COMMENTS - FREE TEXT/NARRATIVE: Patient is a 77-year-old female who presents to the ED for the evaluation of a cough and congestion. She states that she was seen in this ER around 2 nights ago and was diagnosed with an upper respiratory infection and bronchitis and was started on azithromycin and was given a shot of Rocephin in the ED. She states that she was feeling a little bit better the cough has subsided however she does have increased shortness of breath with little to no activity. He states that she is not able to get anything up with the cough but feels as if there is mucus or junk stuck in the middle of her chest. She states that she is drinking fluids okay but does not have much of an appetite at this time. She has had a low-grade fever of 99F or 100F, and she has been taking Chlor- Trimeton and Mucinex for her sickness as well. She notes that her has been sick with a similar sickness. She also noted that last night at around 9: 30 PM she went from a sitting to standing position and felt dizzy for around 2- 3 minutes. - Related Data Allergies Allergy/AdvReac Type Severity Reaction Status Date / Time ticlopidine Allergy Unknown Cannot Verified 06/26/18 09:49 Remember carvedilol [From Coreg] AdvReac Lightheaded Verified 06/29/18 08:37 ness Home Meds: Home Meds Clopidogrel [Plavix] 75 mg PO DAILY 01/08/14 [History] Multivitamin [Multivitamins] 1 cap PO DAILY 06/03/16 [History] Apixaban [Eliquis] 5 mg PO BID 03/11/18 [History] Nitroglycerin 0.4 mg SL ASDIRECTED PRN 03/11/18 [History] Calcium Carbonate/Vitamin D3 [Calcium 600 + Vit D 400 Softgl] 1 cap PO DAILY [History] Lactobacillus Reuteri [Biogaia Gastrus] 1 tab PO DAILY 05/07/18 [History] Levothyroxine 75 mcg PO DAILY 05/07/18 [History] Pantoprazole [ProTONIX] 40 mg PO DAILY 05/07/18 [History] Furosemide [Lasix] 20 mg PO DAILY PRN 06/04/18 [History] Metoprolol Tartrate 12.5 mg PO BID 06/04/18 [History] atorvaSTATin Calcium [Lipitor] 40 mg PO DAILY 06/04/18 [History] Losartan [Cozaar] 50 mg PO DAILY 06/05/18 [History] Amoxicillin/Potassium Clav [Augmentin 875-125 Tablet] 1 each PO BID #14 tablet 07/25/18 [Rx] Benzonatate [Tessalon Perle] 100 mg PO Q8H PRN #15 capsule 07/25/18 [Rx] Chlorpheniramine Maleate [Chlor-Trimeton] 4 mg PO Q6H PRN 07/26/18 [History] guaiFENesin [Mucinex] 1,200 mg PO DAILY 07/26/18 [History] Past Medical History HEENT History: Reports: Hard of Hearing, Impaired Vision Other HEENT History: wears eyeglasses and hearing aids Cardiovascular History: Reports: Afib, CAD, High Cholesterol, Hypertension, NE, Stents, Other (See Below) Other Cardiovascular History: Raynaud's phenomenon. Respiratory History: Reports: Bronchitis, Recurrent Gastrointestinal History: Reports: GERD, GI Bleed, PUD, Other (See Below) Other Gastrointestinal History: Ischemic bowel, bowel resection, melena, duodenal ulcer hemorrhage, GI bleed, achalsia Genitourinary History: Reports: None MAGNETO SPECIALIST History: Reports: Musculoskeletal History: Reports: Fracture, Osteoarthritis, Osteoporosis Neurological History: Reports: Other (See Below) Other Neuro History: dizziness, neck surgery Psychiatric History: Reports: None Endocrine/Metabolic History: Reports: Diabetes, Type II, Hypothyroidism Other Endocrine/Metabolic History: diet controlled, takes no meds. Hematologic History: Reports: Anemia, Blood Transfusion(s) Immunologic History: Reports: None Oncologic (Cancer) History: Reports: None, Squamous Cell Carcinoma Dermatologic History: Reports: None - Infectious Disease History Infectious Disease History: Reports: Chicken Pox, Measles, Shingles - Past Surgical History Head Surgeries/Procedures: Reports: None HEENT Surgical History: Reports: Cataract Surgery, Oral Surgery Cardiovascular Surgical History: Reports: Coronary Artery Stent, Vascular Surgery Other Cardiovascular Surgeries/Procedures: angiogram. Angioplasty with 2 stents --jan 2018 Respiratory Surgical History: Reports: None GI Surgical History: Reports: Colon, EGD, Hernia, Abdominal Other GI Surgeries/Procedures: 3 abdominal surgeries, perforated bowel, bowel removed. Female Surgical History: Reports: Section, Hysterectomy, Salpingo- Oophorectomy Endocrine Surgical History: Reports: None Neurological Surgical History: Reports: C-Spine Musculoskeletal Surgical History: Reports: ORIF Other Musculoskeletal Surgeries/Procedures:: neck surgery. Oncologic Surgical History: Reports: None Dermatological Surgical History: Reports: Other (See Below) Social & Family History - Family History Family Medical History: Noncontributory - Tobacco Use Smoking Status *Q: Former Smoker Used Tobacco, but Quit: Yes Month/Year Tobacco Last Used: 1995 - Caffeine Use Caffeine Use: Reports: Coffee - Recreational Drug Use Recreational Drug Use: No - Living Situation & Occupation Living situation: Reports: , with Spouse, with Family (Son) Occupation: Employed ([employer]) ED ROS GENERAL - Review of Systems Review Of Systems: See Below Constitutional: Reports: Fever, Chills, Weakness HEENT: Denies: Nose Pain, Throat Pain, Throat Swelling Respiratory: Reports: Shortness of Breath, Cough. Denies: Wheezing, Sputum Cardiovascular: Reports: No Symptoms Endocrine: Reports: No Symptoms GI/Abdominal: Reports: Diarrhea, Nausea. Denies: Abdominal Pain, Vomiting Musculoskeletal: Reports: No Symptoms Skin: Reports: No Symptoms Neurological: Reports: No Symptoms Psychiatric: Reports: No Symptoms Hematologic/Lymphatic: Reports: No Symptoms Immunologic: Reports: No Symptoms ED EXAM, GENERAL - Physical Exam Exam: See Below Exam Limited By: No Limitations General Appearance: Alert, WD/WN, No Apparent Distress Eye Exam: Bilateral Eye: Normal Inspection Ears: Normal External Exam Nose: Normal Inspection, Nasal Swelling (Bilateral turbinate injection.), Clear Rhinorrhea Throat/Mouth: Normal Inspection, Normal Lips, Normal Oropharynx (The patient's breath has a mild fruity odor to it.), No Airway Compromise Head: Atraumatic, Normocephalic Neck: Normal Inspection Respiratory/Chest: No Respiratory Distress, Lungs Clear, No Accessory Muscle Use , Chest Non-Tender Cardiovascular: Normal Peripheral Pulses, Regular Rate, Rhythm, No Murmur GI/Abdominal: Normal Bowel Sounds, Soft, Non-Tender, No Distention, No Mass Extremities: Normal Inspection, Normal Capillary Refill Neurological: Alert, Oriented, Normal Cognition, No Motor/Sensory Deficits Psychiatric: Normal Affect, Normal Mood Skin Exam: Warm, Dry, Intact, Normal Color, No Rash Course - Vital Signs Last Recorded V/S: Last Vital Signs Temp 98.0 F 07/26/18 14:05 Pulse 80 07/26/18 14:05 Resp 29 H 07/26/18 14:05 BP 159/58 H 07/26/18 14:05 Pulse Ox 97 07/26/18 14:05 - Orders/Labs/Meds Orders: Active Orders 24 hr Category Date Time Status Peripheral IV Care [RC] . DIRECTED Care 07/26/18 14:36 Ordered Chest 2V [CR] Stat Exams 07/26/18 14:36 Ordered Sodium Chloride 0.9% [Normal Saline] 1,000 ml Med 07/26/18 14:45 Ordered IV ASDIRECTED Sodium Chloride 0.9% [Saline Flush] Med 07/26/18 14:36 Ordered 10 ml FLUSH ASDIRECTED PRN Peripheral IV Insertion Adult [OM.PC] Routine Oth 07/26/18 14:36 Ordered Medication Orders Sodium Chloride (Normal Saline) 1,000 mls @ 500 mls/hr IV ASDIRECTED REYNALDO Last Admin: 07/26/18 15:00 Dose: 500 mls/hr Sodium Chloride (Saline Flush) 10 ml FLUSH ASDIRECTED PRN PRN Reason: Keep Vein Open Last Admin: 07/26/18 15:01 Dose: 10 ml Labs: Laboratory Tests 07/26/18 07/26/18 Range/Units 14:55 14:55 WBC 4.90 (3.98-10.04) K/mm3 RBC 4.11 (3.98-5.22) M/mm3 Hgb 11.5 (11.2-15.7) gm/L Hct 36.5 (34.1-44.9) % MCV 88.8 (79.4-94.8) fl MCH 28.0 (25.6-32.2) pg MCHC 31.5 L (32.2-35.5) g/dl RDW Std Deviation 51.8 H (36.4-46.3) fL Plt Count 144 L (182-369) K/mm3 MPV 10.5 (9.4-12.3) fl Neutrophils % (Manual) 72 H (40-60) % Band Neutrophils % 0 (0-10) % Lymphocytes % (Manual) 23 (20-40) % Atypical Lymphs % 0 % Monocytes % (Manual) 5 (2-10) % Eosinophils % (Manual) 0 L (0.7-5.8) % Basophils % (Manual) 0 L (0.1-1.2) Platelet Estimate Decreased Plt Morphology Comment Normal RBC Morph Comment Normal Sodium 141 (136-145) mEq/L Potassium 3.7 (3.5-5.1) mEq/L Chloride 102 (98-107) mEq/L Carbon Dioxide 29 (21-32) mEq/L Anion Gap 13.7 (5-15) BUN 16 (7-18) mg/dL Creatinine 1.4 H (0.55-1.02) mg/dL Est Cr Clr Drug Dosing 31.24 mL/min Estimated GFR (MDRD) 37 (>60) mL/min BUN/Creatinine Ratio 11.4 L (14-18) Glucose 112 (83-115) mg/dL Calcium 9.2 (8.5-10.1) mg/dL Total Bilirubin 0.7 (0.2-1.0) mg/dL AST 23 (15-37) U/L ALT 23 (14-59) U/L Alkaline Phosphatase 74 (46-116) U/L Total Protein 7.0 (6.4-8.2) g/dl Albumin 3.5 (3.4-5.0) g/dl Globulin 3.5 gm/dL Albumin/Globulin Ratio 1.0 (1-2) Meds: Medications Generic Name Dose Route Start Last Admin Trade Name Freq PRN Reason Stop Dose Admin Sodium Chloride 1,000 mls @ 500 mls/hr 07/26/18 14:45 07/26/18 15:00 Normal Saline IV 500 mls/hr ASDIRECTED REYNALDO Administration Sodium Chloride 10 ml 07/26/18 14:36 07/26/18 15:01 Saline Flush FLUSH 10 ml ASDIRECTED PRN Administration Keep Vein Open - Re-Assessments/Exams Free Text/Narrative Re-Assessment/Exam: 07/26/18 14:48 Patient presents to the ED for the evaluation of a lingering cough. I did order a CBC, CMP, another chest x-ray, and some IV fluids in the evaluation and management of this, I am suspicious that she might be slightly dehydrated as she has not eating a whole lot due to poor appetite and probably not drinking as much fluid as she should be. I ordered a repeat chest x-ray to make sure that there is nothing more ominous than just a bronchitis. 07/26/18 16:12 Patient's chest x-ray and labs have returned, the chest x-ray does not appear to be too much different from the chest x-ray done on 07/24/2018. There is no evidence that any type of pneumonia has set forth. The patient's labs are all essentially within normal limits. I feel that the liter of fluids should help her feel a little bit better as she has not been eating or drinking much. She should be able to be discharged home safely after the fluids are done. Will give general recommendations and sure them that she should be feeling better shortly. Departure - Departure Time of Disposition: 16:13 Disposition: Home, Self-Care 01 Condition: Fair Clinical Impression: Bronchitis, Viral URI with cough, Lethargy - Discharge Information *PRESCRIPTION DRUG MONITORING PROGRAM REVIEWED*: No *COPY OF PRESCRIPTION DRUG MONITORING REPORT IN PATIENT MARILY: No Instructions: Shortness of Breath, Adult, [id number], Weakness, [id number] Referrals: Keven Yun MD [Primary Care Provider] - Forms: ED Department Discharge Additional Instructions: You have been evaluated in the ED for feelings of increased shortness of breath and dizziness. It is likely that you were slightly dehydrated last night that would have caused the dizziness spell. Your labs are essentially within normal limits today, you were given 1 L of IV fluids in regards to your subjective dehydration. This should help you feel a little bit better. It is likely that you will still feel somewhat under the weather for a few days. However I do suggest that you increase your physical activity a small amount each day as well. Please increase your oral fluid intake and food intake, eat small meals if you do not feel like eating a bigger meal at one time. It is important to nourish her body while you are ill with a viral illness as this helps your body heal and feel better quicker. You may take [id number] Tylenol every 6 hours as needed for fever/general aches. Please do not exceed 4000 mg of Tylenol in a 24-hour time span. If you should develop worsening fever, chills, increased lethargy, or shortness of breath. Please do not hesitate to seek treatment for further evaluation. Please return to the ED if your symptoms change or worsen. - My Orders Last 24 Hours: My Active Orders 07/26/18 14:36 Peripheral IV Care [RC] . DIRECTED Chest 2V [CR] Stat Sodium Chloride 0.9% [Saline Flush] 10 ml FLUSH ASDIRECTED PRN Peripheral IV Insertion Adult [OM.PC] Routine 07/26/18 14:45 Sodium Chloride 0.9% [Normal Saline] 1,000 ml IV ASDIRECTED - Assessment/Plan Last 24 Hours: My Active Orders 07/26/18 14:36 Peripheral IV Care [RC] . DIRECTED Chest 2V [CR] Stat Sodium Chloride 0.9% [Saline Flush] 10 ml FLUSH ASDIRECTED PRN Peripheral IV Insertion Adult [OM.PC] Routine 07/26/18 14:45 Sodium Chloride 0.9% [Normal Saline] 1,000 ml IV ASDIRECTED
[2018-07-26 17:14] VITALS: BP 154/59
--- NOTE | 2018-07-27 09:02 | CR ---
Chest: Two views of the chest were obtained. Comparison: Previous chest x-ray of 07/24/18. Heart size at the upper limits of normal. Tortuous thoracic aorta is seen. Lungs are clear with no acute parenchymal change. Mild scoliosis is noted within the spine. Diaphragms are flattened on the lateral view compatible with emphysematous change. Impression: 1. Emphysematous change. 2. Nothing acute is appreciated. Diagnostic code #2
== END 2018-07-26 17:08 | disposition home or self-care (01) ==
LOC: JD.ED 13:55
DX: J40 Bronchitis, not specified as acute or chronic (principal); J06.9 Acute upper respiratory infection, unspecified; I25.2 Old myocardial infarction; E11.9 Type 2 diabetes mellitus without complications; I10 Essential (primary) hypertension; Z87.891 Personal history of nicotine dependence; Z88.8 Allergy status to other drugs, medicaments and biological substances; Z79.899 Other long term (current) drug therapy
CPT/HCPCS: 36415; 71046; 80053; 85007; 85027; 96360; 96361; 99285; J7040; 99283

== ENCOUNTER 2019-04-19 15:36 | Emergency (ER) | payer MEDICARE, BC ==
[2019-04-19] MEDS ORDERED: Sodium Chloride 0.9% 10 ML Syringe FLUSH PRN (15:56)
[2019-04-19] MEDS ORDERED: Sodium Chloride 0.9% 1,000 ML IV SCH (16:00)
--- NOTE | 2019-04-19 16:51 | EDM.PDOC ---
ED HPI GENERAL MEDICAL PROBLEM - General Chief Complaint: Cardiovascular Problem Stated Complaint: RAPID HEART RATE Time Seen by Provider: 04/19/19 15:48 Source of Information: Reports: Patient, Family History Limitations: Reports: No Limitations - History of Present Illness INITIAL COMMENTS - FREE TEXT/NARRATIVE: The patient presents with a rapid heart rate and some shortness of breath. She has lung cancer and she recently finished 9 rounds of radiation at [facility] last week. She was doing okay today until this afternoon. Her son noticed her apple watch was saying her heart was fast. She does have some shortness of breath with it but no fever or chills. She has no chest pain. She has no abdominal pain, nausea or vomiting. She has no dysuria or diarrhea. She did have a cough last week and she was put on a steroid and antibiotics. She says her cough is better. She does have a history of A-fib and a LBBB. She did get stents a few years ago. She is on plavix and eliquis. Onset: Gradual Duration: Hour(s): Severity: Moderate Improves with: Reports: None Worsens with: Reports: None Associated Symptoms: Reports: Cough, Shortness of Breath. Denies: Chest Pain, Fever/Chills, Headaches, Nausea/Vomiting - Related Data Allergies Allergy/AdvReac Type Severity Reaction Status Date / Time ticlopidine Allergy Unknown Cannot Verified 04/19/19 15:52 Remember carvedilol [From Coreg] AdvReac Lightheaded Verified 04/19/19 15:52 ness Home Meds: Home Meds Clopidogrel [Plavix] 75 mg PO DAILY 01/08/14 [History] Multivitamin [Multivitamins] 1 cap PO DAILY 06/03/16 [History] Apixaban [Eliquis] 5 mg PO BID 03/11/18 [History] Calcium Carbonate/Vitamin D3 [Calcium 600 + Vit D 400 Softgl] 1 cap PO DAILY [History] Lactobacillus Reuteri [Biogaia Gastrus] 1 tab PO DAILY 05/07/18 [History] Levothyroxine 75 mcg PO DAILY 05/07/18 [History] Pantoprazole [ProTONIX] 40 mg PO DAILY 05/07/18 [History] Furosemide [Lasix] 20 mg PO DAILY PRN 06/04/18 [History] Metoprolol Tartrate 25 mg PO BID 06/04/18 [History] atorvaSTATin Calcium [Lipitor] 40 mg PO DAILY 06/04/18 [History] guaiFENesin [Mucinex] 1,200 mg PO DAILY 07/26/18 [History] Acetaminophen with Codeine [Tylenol with Codeine #3 Tablet] 1 each PO DAILY PRN 01/04/19 [History] Chlorzoxazone 500 mg PO DAILY 01/04/19 [History] Cyclobenzaprine [Flexeril] 10 mg PO DAILY 01/04/19 [History] Past Medical History HEENT History: Reports: Hard of Hearing, Impaired Vision Other HEENT History: wears eyeglasses and hearing aids Cardiovascular History: Reports: Afib, CAD, High Cholesterol, Hypertension, [place], Stents, Other (See Below) Other Cardiovascular History: Raynaud's phenomenon. Respiratory History: Reports: Bronchitis, Recurrent Gastrointestinal History: Reports: GERD, GI Bleed, PUD, Other (See Below) Other Gastrointestinal History: Ischemic bowel, bowel resection, melena, duodenal ulcer hemorrhage, GI bleed, achalsia Genitourinary History: Reports: None OPHTHALMIC ASST History: Reports: Musculoskeletal History: Reports: Fracture, Osteoarthritis, Osteoporosis Neurological History: Reports: Other (See Below) Other Neuro History: dizziness, neck surgery Psychiatric History: Reports: None Endocrine/Metabolic History: Reports: Diabetes, Type II, Hypothyroidism Other Endocrine/Metabolic History: diet controlled, takes no meds. Hematologic History: Reports: Anemia, Blood Transfusion(s) Immunologic History: Reports: None Oncologic (Cancer) History: Reports: None, Squamous Cell Carcinoma Dermatologic History: Reports: None - Infectious Disease History Infectious Disease History: Reports: Chicken Pox, Measles, Shingles - Past Surgical History Head Surgeries/Procedures: Reports: None HEENT Surgical History: Reports: Cataract Surgery, Oral Surgery Cardiovascular Surgical History: Reports: Coronary Artery Stent, Vascular Surgery Other Cardiovascular Surgeries/Procedures: angiogram. Angioplasty with 2 stents --jan 2018 Respiratory Surgical History: Reports: None GI Surgical History: Reports: Colon, EGD, Hernia, Abdominal Other GI Surgeries/Procedures: 3 abdominal surgeries, perforated bowel, bowel removed. Female Surgical History: Reports: Section, Hysterectomy, Salpingo- Oophorectomy Endocrine Surgical History: Reports: None Neurological Surgical History: Reports: C-Spine Musculoskeletal Surgical History: Reports: ORIF Other Musculoskeletal Surgeries/Procedures:: neck surgery. Oncologic Surgical History: Reports: None Dermatological Surgical History: Reports: Other (See Below) Social & Family History - Family History Family Medical History: Noncontributory - Tobacco Use Smoking Status *Q: Former Smoker Used Tobacco, but Quit: Yes Month/Year Tobacco Last Used: 1999 - Caffeine Use Caffeine Use: Reports: None - Living Situation & Occupation Living situation: Reports: , with Spouse, with Family (Son) Occupation: Employed ([employer]) ED ROS GENERAL - Review of Systems Review Of Systems: See Below Constitutional: Reports: No Symptoms HEENT: Reports: No Symptoms Respiratory: Reports: Shortness of Breath Cardiovascular: Reports: Palpitations. Denies: Chest Pain Endocrine: Reports: No Symptoms GI/Abdominal: Reports: No Symptoms : Reports: No Symptoms Musculoskeletal: Reports: No Symptoms ED EXAM, GENERAL - Physical Exam Exam: See Below Exam Limited By: No Limitations General Appearance: Alert, No Apparent Distress Ears: Normal External Exam Nose: Normal Inspection Head: Atraumatic, Normocephalic Neck: Normal Inspection Respiratory/Chest: No Respiratory Distress, Lungs Clear, Normal Breath Sounds Cardiovascular: No Edema, No Murmur, Tachycardia, Irregularly Irregular GI/Abdominal: Soft, Non-Tender, No Organomegaly, No Mass Back Exam: Normal Inspection Extremities: Normal Inspection Neurological: Alert, Oriented, No Motor/Sensory Deficits EKG INTERPRETATION EKG Date: 04/19/19 Time: 16:16 Rhythm: A-Fib Rate (Beats/Min): 117 [place]: LAD-Left [place] Deviation P-Wave: Absent QRS: LBBB ST-T: Normal QT: Normal Course - Vital Signs Last Recorded V/S: Last Vital Signs Temp 98.6 F 04/19/19 15:49 Pulse 122 H 04/19/19 15:49 Resp 21 H 04/19/19 15:49 BP 152/93 H 04/19/19 15:49 Pulse Ox 98 04/19/19 15:49 - Orders/Labs/Meds Orders: Active Orders 24 hr Category Date Time Status Cardiac Monitoring [RC] . DIRECTED Care 04/19/19 15:56 Active EKG Documentation Completion [RC] STAT Care 04/19/19 15:58 Active Oxygen Therapy [RC] PRN Care 04/19/19 15:56 Active Peripheral IV Care [RC] . DIRECTED Care 04/19/19 15:57 Active Chest 1V Frontal [CR] Stat Exams 04/19/19 15:58 Taken Diltiazem IR [Cardizem] Med 04/19/19 17:50 Once 60 mg PO ONETIME ONE Sodium Chloride 0.9% [Normal Saline] 1,000 ml Med 04/19/19 16:00 Active IV .BOLUS Sodium Chloride 0.9% [Saline Flush] Med 04/19/19 15:56 Active 10 ml FLUSH ASDIRECTED PRN Peripheral IV Insertion Adult [OM.PC] Stat Oth 04/19/19 15:56 Ordered Medication Orders Sodium Chloride (Normal Saline) 1,000 mls @ 1,000 mls/hr IV .BOLUS REYNALDO Last Admin: 04/19/19 16:46 Dose: 1,000 mls/hr Sodium Chloride (Saline Flush) 10 ml FLUSH ASDIRECTED PRN PRN Reason: Keep Vein Open Last Admin: 04/19/19 16:47 Dose: 10 ml Labs: Laboratory Tests 04/19/19 04/19/19 04/19/19 Range/Units 16:12 16:12 16:12 WBC 9.34 (3.98-10.04) K/mm3 RBC 4.41 (3.98-5.22) M/mm3 Hgb 12.2 (11.2-15.7) gm/dl Hct 40.0 (34.1-44.9) % MCV 90.7 (79.4-94.8) fl MCH 27.7 (25.6-32.2) pg MCHC 30.5 L (32.2-35.5) g/dl RDW Std Deviation 55.2 H (36.4-46.3) fL Plt Count 268 (182-369) K/mm3 MPV 10.1 (9.4-12.3) fl Neut % (Auto) 87.7 H (34.0-71.1) % Lymph % (Auto) 4.6 L (19.3-51.7) % [place] % (Auto) 7.4 (4.7-12.5) % Eos % (Auto) 0.1 L (0.7-5.8) Baso % (Auto) 0.1 (0.1-1.2) % Neut # (Auto) 8.19 H (1.56-6.13) K/mm3 Lymph # (Auto) 0.43 L (1.18-3.74) K/mm3 [place] # (Auto) 0.69 H (0.24-0.36) K/mm3 Eos # (Auto) 0.01 L (0.04-0.36) K/mm3 Baso # (Auto) 0.01 (0.01-0.08) K/mm3 Manual Slide Review Abnormal smear Sodium 146 H (136-145) mEq/L Potassium 4.1 (3.5-5.1) mEq/L Chloride 107 (98-107) mEq/L Carbon Dioxide 27 (21-32) mEq/L Anion Gap 16.1 H (5-15) BUN 19 H (7-18) mg/dL Creatinine 1.0 (0.55-1.02) mg/dL Est Cr Clr Drug Dosing 43.07 mL/min Estimated GFR (MDRD) 54 (>60) mL/min BUN/Creatinine Ratio 19.0 H (14-18) Glucose 192 H (83-115) mg/dL Calcium 9.6 (8.5-10.1) mg/dL Magnesium 1.9 (1.8-2.4) mg/dl Total Bilirubin 0.5 (0.2-1.0) mg/dL AST 16 (15-37) U/L ALT 20 (14-59) U/L Alkaline Phosphatase 88 (46-116) U/L Troponin I < 0.017 (0.00-0.056) ng/mL Total Protein 7.9 (6.4-8.2) g/dl Albumin 3.9 (3.4-5.0) g/dl Globulin 4.0 gm/dL Albumin/Globulin Ratio 1.0 (1-2) TSH 3rd Generation 2.209 (0.358-3.74) uIU/mL Meds: Medications Generic Name Dose Route Start Last Admin Trade Name Freq PRN Reason Stop Dose Admin Sodium Chloride 1,000 mls @ 1,000 mls/hr 04/19/19 16:00 04/19/19 16:46 Normal Saline IV 1,000 mls/hr .BOLUS REYNALDO Administration Sodium Chloride 10 ml 04/19/19 15:56 04/19/19 16:47 Saline Flush FLUSH 10 ml ASDIRECTED PRN Administration Keep Vein Open - Re-Assessments/Exams Free Text/Narrative Re-Assessment/Exam: 04/19/19 16:55 I ordered an IV NS 500ml bolus, EKG, CXR and labs. 04/19/19 17:50 Her EKG shows a LBBB and atrial fibrillation. No acute changes. Her CXR shows a mass in the right perihilar region. She does have the tumor there. Her CBC looks good. Her Na is elevated at 146. Her anion gap is elevated at 16.1. Her glucose is elevated at 192. Her troponin is negative. Her TSH is negative. Her heart rate is down now and according to the rhythm strip she is in the 80s and it appears sinus. She is also a little dehydrated. I will give her a dose of cardizem before she goes. Departure - Departure Time of Disposition: 17:55 Disposition: Home, Self-Care 01 Condition: Good Clinical Impression: Atrial fibrillation with RVR, Dehydration Referrals: Keven Yun MD [Primary Care Provider] - 1 Week Forms: ED Department Discharge Additional Instructions: Drink some more water the next couple of days. Take your medication as prescribed. Please return if you are worse. - My Orders Last 24 Hours: My Active Orders 04/19/19 15:56 Cardiac Monitoring [RC] . DIRECTED Oxygen Therapy [RC] PRN Sodium Chloride 0.9% [Saline Flush] 10 ml FLUSH ASDIRECTED PRN Peripheral IV Insertion Adult [OM.PC] Stat 04/19/19 15:57 Peripheral IV Care [RC] . DIRECTED 04/19/19 15:58 EKG Documentation Completion [RC] STAT Chest 1V Frontal [CR] Stat 04/19/19 16:00 Sodium Chloride 0.9% [Normal Saline] 1,000 ml IV .BOLUS 04/19/19 17:50 Diltiazem IR [Cardizem] 60 mg PO ONETIME ONE - Assessment/Plan Last 24 Hours: My Active Orders 04/19/19 15:56 Cardiac Monitoring [RC] . DIRECTED Oxygen Therapy [RC] PRN Sodium Chloride 0.9% [Saline Flush] 10 ml FLUSH ASDIRECTED PRN Peripheral IV Insertion Adult [OM.PC] Stat 04/19/19 15:57 Peripheral IV Care [RC] . DIRECTED 04/19/19 15:58 EKG Documentation Completion [RC] STAT Chest 1V Frontal [CR] Stat 04/19/19 16:00 Sodium Chloride 0.9% [Normal Saline] 1,000 ml IV .BOLUS 04/19/19 17:50 Diltiazem IR [Cardizem] 60 mg PO ONETIME ONE
[2019-04-19] MEDS ORDERED: Diltiazem IR 60 MG Tab PO ONE (17:50)
[2019-04-19 18:08] VITALS: BP 125/79; PULSE 88
--- NOTE | 2019-04-20 10:18 | CR ---
Chest: Portable view of the chest was obtained. Comparison: Prior chest x-ray of 07/26/18. Heart size at the upper limits of normal. Tortuous thoracic aorta is seen. Diffuse atherosclerotic calcification is noted within the aorta. Questionable masslike density is noted within the right upper chest adjacent to the hilum. Lungs otherwise are clear but hyperinflated. Bony structures are grossly intact. Impression: 1. Questionable masslike density as noted above. Noncontrast chest CT recommended to see if this is a real finding. 2. Emphysematous change. 3. No additional abnormality is appreciated. Diagnostic code #9 This report was dictated in [place] Standard Time
== END 2019-04-19 18:20 | disposition home or self-care (01) ==
LOC: JD.ED 15:36
DX: I48.91 Unspecified atrial fibrillation (principal); E86.0 Dehydration; I25.10 Atherosclerotic heart disease of native coronary artery without angina pectoris; E78.00 Pure hypercholesterolemia, unspecified; I10 Essential (primary) hypertension; I25.2 Old myocardial infarction; K21.9 Gastro-esophageal reflux disease without esophagitis; E03.9 Hypothyroidism, unspecified; E11.9 Type 2 diabetes mellitus without complications; Z88.8 Allergy status to other drugs, medicaments and biological substances; Z85.118 Personal history of other malignant neoplasm of bronchus and lung; Z79.01 Long term (current) use of anticoagulants; Z95.5 Presence of coronary angioplasty implant and graft; Z79.890 Hormone replacement therapy; Z79.899 Other long term (current) drug therapy; Z87.891 Personal history of nicotine dependence
CPT/HCPCS: 36415; 71045; 80053; 83735; 84443; 84484; 85025; 93005; 96360; 99285; A9270; J7040; 93010; 99284; J7030

== ENCOUNTER 2019-12-22 00:31 | Emergency (ER) | payer MEDICARE, BC ==
[2019-12-22] MEDS ORDERED: Ondansetron 4 MG/2 ML SDV IVPUSH ONE ×2 (03:56→11:11)
[2019-12-22] MEDS ORDERED: Sodium Chloride 0.9% 1,000 ML IV SCH (04:00)
[2019-12-22] MEDS ORDERED: HYDROmorphone 0.5 MG/0.5 ML Syringe IVPUSH ONE ×2 (04:32→06:50)
--- NOTE | 2019-12-22 04:38 | EDM.PDOC ---
ED HPI GENERAL MEDICAL PROBLEM - General Chief Complaint: Abdominal Pain Stated Complaint: ABDOMINAL PAIN Time Seen by Provider: 12/22/19 04:14 Source of Information: Reports: Patient, Family (Son) History Limitations: Reports: No Limitations - History of Present Illness INITIAL COMMENTS - FREE TEXT/NARRATIVE: Mrs. 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 Her pain is constant, and she has not identified any modifiers. She states that she feels bloated. She did not have any nausea until after she arrived to the ED, and she states that she vomited a small amount here. The patient states that she has also had several episodes of small bowel obstructions, and that her curr ent pain is similar to when she had a small bowel obstruction in December 2018. Here in the ED, the patient's initial BP is found to be elevated at 175/71, otherwise, she is hemodynamically stable, afebrile, saturating 97% on room air. The patient states that she had some nausea, vomiting, and watery diarrhea on Friday night, 12/19/2019, but no other symptoms until last night. Otherwise, the patient denies recent fever, chills, sore throat, ear pain, nasal or sinus congestion, cough, dyspnea, chest pain, palpitations, nausea, vomiting, constipation, diarrhea, abdominal pain, urinary symptoms, recent weight gain or weight loss, recent bloody bowel movements or black bowel movements, recent joint aches, headaches, or rashes. The patient's PCP is Dr. Keven Yun. Her cardiology midlevel is Kayleen Joseph NP. Abdominal Pain Score (Numeric/FACES): 8 - Related Data Allergies Allergy/AdvReac Type Severity Reaction Status Date / Time ticlopidine Allergy Unknown Cannot Verified 12/22/19 01:08 Remember carvedilol [From Coreg] AdvReac Lightheaded Verified 12/22/19 01:08 ness Home Meds: Home Meds Clopidogrel [Plavix] 75 mg PO DAILY 01/08/14 [History] Multivitamin [Multivitamins] 1 cap PO DAILY 06/03/16 [History] Apixaban [Eliquis] 5 mg PO BID 03/11/18 [History] Calcium Carbonate/Vitamin D3 [Calcium 600 + Vit D 400 Softgl] 1 cap PO DAILY 05/07/18 [History] Lactobacillus Reuteri [Biogaia Gastrus] 1 tab PO DAILY 05/07/18 [History] Levothyroxine 75 mcg PO DAILY 05/07/18 [History] Pantoprazole [ProTONIX] 40 mg PO DAILY 05/07/18 [History] Furosemide [Lasix] 20 mg PO DAILY PRN 06/04/18 [History] Metoprolol Tartrate 12.5 mg PO BID 06/04/18 [History] atorvaSTATin Calcium [Lipitor] 40 mg PO DAILY 06/04/18 [History] Acetaminophen with Codeine [Tylenol with Codeine #3 Tablet] 1 each PO DAILY PRN 01/04/19 [History] Benzonatate [Tessalon Perle] 100 mg PO Q6H PRN 04/19/19 [History] Doxycycline Monohydrate [Monodox] 200 mg PO DAILY 04/19/19 [History] Levalbuterol Tartrate [Xopenex Hfa] 2 puff IH Q4H PRN 04/19/19 [History] Losartan [Cozaar] 50 mg PO DAILY 04/19/19 [History] Nitroglycerin [Nitrostat] 0.4 mg SL Q15M PRN 04/19/19 [History] Umeclidinium [place] [Incruse Ellipta*] 1 puff IH DAILY 04/19/19 [History] estradioL [Estrace Vaginal] 1 applic VAG MOFR 04/19/19 [History] methylPREDNISolone [Medrol] 4 mg PO DAILY 04/19/19 [History] Past Medical History HEENT History: Reports: Hard of Hearing (wears hearing aids), Impaired Vision (wears glasses) Cardiovascular History: Reports: Afib (paroxysmal), CAD, High Cholesterol, Hypertension, [place] (1995, 2017), PVD, Other (See Below) (Raynaud's phenomenon) Gastrointestinal History: Reports: Bowel Obstruction, GERD, GI Bleed, PUD, Other (See Below) (Small and large bowel ischemia/infarct. Small bowel bacterial overgrowth.) Musculoskeletal History: Reports: Fracture (right femur), Osteoarthritis, Osteoporosis Endocrine/Metabolic History: Reports: Diabetes, Type II (diet controlled), Hypothyroidism Hematologic History: Reports: Blood Transfusion(s) Oncologic (Cancer) History: Reports: Lung (s/p RTx) - Infectious Disease History Infectious Disease History: Reports: Chicken Pox, Measles, Shingles - Past Surgical History HEENT Surgical History: Reports: Cataract Surgery (bilateral), Oral Surgery (wisdom teeth extraction) Cardiovascular Surgical History: Reports: Coronary Artery Stent (x 3), Vascular Surgery (Bilateral iliac or femoral artery stents. Stent to SMA 2017) GI Surgical History: Reports: Colon (hemicolectomy 2007), Colonoscopy (x 4 or 5), EGD (x 4 or 5), Hernia, Abdominal (umbilical), Small Bowel (resection 2012, 2017) Female Surgical History: Reports: Section (x 6), Hysterectomy (complete) Neurological Surgical History: Reports: C-Spine (ACDF) Musculoskeletal Surgical History: Reports: ORIF (right femur) Social & Family History - Family History Family Medical History: Noncontributory - Tobacco Use Smoking Status *Q: Former Smoker Years of Tobacco use: 20 Packs/Tins Daily: 1 Month/Year Tobacco Last Used: Quit 1995 - Caffeine Use Caffeine Use: Reports: None - Alcohol Use Alcohol Use History: No - Recreational Drug Use Recreational Drug Use: No - Living Situation & Occupation Living situation: Reports: , with Spouse, with Family (Son) 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 ED EXAM, GI/ABD - Physical Exam Exam: See Below Exam Limited By: No Limitations General Appearance: Alert, No Apparent Distress, Thin Eyes: Bilateral: Normal Appearance, EOMI Ears: Normal External Exam, Hearing Grossly Normal Nose: Normal Inspection Throat/Mouth: Normal Inspection, Normal Lips, Normal Voice, No Airway Compromise Head: Atraumatic, Normocephalic Neck: Normal Inspection, Full Range of Motion Respiratory/Chest: No Respiratory Distress, Lungs Clear, Normal Breath Sounds, No Accessory Muscle Use Cardiovascular: Normal Peripheral Pulses, Regular Rate, Rhythm, No Edema, No Gallop, No JVD, No Murmur, No Rub GI/Abdominal Exam: Normal Bowel Sounds (Active. No rushes or tinkles.), Soft, No Organomegaly, No Distention, No Abnormal Bruit, No Mass, Tender (generalized, to entire abdomen), Hernia (ventral) (Female) Exam: Deferred Rectal (Female) Exam: Deferred Back Exam: Normal Inspection, Full Range of Motion, NT Extremities: Normal Inspection, Normal Range of Motion, No Pedal Edema, Normal Capillary Refill Neurological: Alert, Oriented, Normal Cognition, No Motor/Sensory Deficits Psychiatric: Normal Affect Skin Exam: Warm, Dry, Intact, Normal Color, No Rash Course - Vital Signs Last Recorded V/S: Last Vital Signs Temp 37.8 C 12/22/19 11:45 Pulse 100 12/22/19 11:45 Resp 18 12/22/19 11:45 BP 150/68 H 12/22/19 11:45 Pulse Ox 88 L 12/22/19 11:45 - Orders/Labs/Meds Orders: Active Orders 24 hr Category Date Time Status Ray Catheter Insertion [Insert Urinary Catheter] [OM. Care 12/22/19 10:00 Ordered PC] Q24H Gastrointestinal Tube Mgmt [RC] ASDIRECTED Care 12/22/19 09:50 Active Urinary Catheter Assessment [RC] ASDIRECTED Care 12/22/19 09:51 Active Nasogastric Orogastric Tube Insertion [OM.PC] Routine Oth 12/22/19 09:50 Ordered Labs: Laboratory Tests 12/22/19 12/22/19 12/22/19 Range/Units 01:30 01:43 01:43 WBC 6.36 (3.98-10.04) K/mm3 RBC 4.20 (3.98-5.22) M/mm3 Hgb 12.6 (11.2-15.7) gm/dl Hct 40.4 (34.1-44.9) % MCV 96.2 H D (79.4-94.8) fl MCH 30.0 (25.6-32.2) pg MCHC 31.2 L (32.2-35.5) g/dl RDW Std Deviation 52.7 H (36.4-46.3) fL Plt Count 218 (182-369) K/mm3 MPV 9.0 L (9.4-12.3) fl Neut % (Auto) 72.2 H (34.0-71.1) % Lymph % (Auto) 14.5 L (19.3-51.7) % [place] % (Auto) 9.3 (4.7-12.5) % Eos % (Auto) 3.5 (0.7-5.8) Baso % (Auto) 0.3 (0.1-1.2) % Neut # (Auto) 4.60 (1.56-6.13) K/mm3 Lymph # (Auto) 0.92 L (1.18-3.74) K/mm3 [place] # (Auto) 0.59 H (0.24-0.36) K/mm3 Eos # (Auto) 0.22 (0.04-0.36) K/mm3 Baso # (Auto) 0.02 (0.01-0.08) K/mm3 Sodium 147 H (136-145) mEq/L Potassium 3.5 (3.5-5.1) mEq/L Chloride 106 (98-107) mEq/L Carbon Dioxide 30 (21-32) mEq/L Anion Gap 14.5 (5-15) BUN 15 (7-18) mg/dL Creatinine 1.1 H (0.55-1.02) mg/dL Est Cr Clr Drug Dosing 38.54 mL/min Estimated GFR (MDRD) 48 (>60) mL/min BUN/Creatinine Ratio 13.6 L (14-18) Glucose 115 (83-115) mg/dL Calcium 9.3 (8.5-10.1) mg/dL Total Bilirubin 0.5 (0.2-1.0) mg/dL AST 16 (15-37) U/L ALT 22 (14-59) U/L Alkaline Phosphatase 78 (46-116) U/L Total Protein 7.5 (6.4-8.2) g/dl Albumin 3.9 (3.4-5.0) g/dl Globulin 3.6 gm/dL Albumin/Globulin Ratio 1.1 (1-2) Lipase (73-393) U/L Urine Color Light yellow (Yellow) Urine Appearance Clear (Clear) Urine pH 7.0 (5.0-8.0) Ur Specific [place] 1.020 (1.005-1.030) Urine Protein 1+ H (Negative) Urine Glucose (UA) Negative (Negative) Urine Ketones Negative (Negative) Urine Occult Blood 1+ H (Negative) Urine Nitrite Negative (Negative) Urine Bilirubin Negative (Negative) Urine Urobilinogen 0.2 (0.2-1.0) Ur Leukocyte Esterase Trace H (Negative) Urine RBC 0-5 (0-5) /hpf Urine WBC 0-5 (0-5) /hpf Ur Squamous Epith Cells 0-5 (0-5) /hpf Urine Bacteria Few (FEW) /hpf Urine Mucus Not seen (FEW) /hpf COVID-19 (ROSSY) (NEGATIVE) 12/22/19 12/22/19 Range/Units 01:43 07:16 WBC (3.98-10.04) K/mm3 RBC (3.98-5.22) M/mm3 Hgb (11.2-15.7) gm/dl Hct (34.1-44.9) % MCV (79.4-94.8) fl MCH (25.6-32.2) pg MCHC (32.2-35.5) g/dl RDW Std Deviation (36.4-46.3) fL Plt Count (182-369) K/mm3 MPV (9.4-12.3) fl Neut % (Auto) (34.0-71.1) % Lymph % (Auto) (19.3-51.7) % [place] % (Auto) (4.7-12.5) % Eos % (Auto) (0.7-5.8) Baso % (Auto) (0.1-1.2) % Neut # (Auto) (1.56-6.13) K/mm3 Lymph # (Auto) (1.18-3.74) K/mm3 [place] # (Auto) (0.24-0.36) K/mm3 Eos # (Auto) (0.04-0.36) K/mm3 Baso # (Auto) (0.01-0.08) K/mm3 Sodium (136-145) mEq/L Potassium (3.5-5.1) mEq/L Chloride (98-107) mEq/L Carbon Dioxide (21-32) mEq/L Anion Gap (5-15) BUN (7-18) mg/dL Creatinine (0.55-1.02) mg/dL Est Cr Clr Drug Dosing mL/min Estimated GFR (MDRD) (>60) mL/min BUN/Creatinine Ratio (14-18) Glucose (83-115) mg/dL Calcium (8.5-10.1) mg/dL Total Bilirubin (0.2-1.0) mg/dL AST (15-37) U/L ALT (14-59) U/L Alkaline Phosphatase (46-116) U/L Total Protein (6.4-8.2) g/dl Albumin (3.4-5.0) g/dl Globulin gm/dL Albumin/Globulin Ratio (1-2) Lipase 132 (73-393) U/L Urine Color (Yellow) Urine Appearance (Clear) Urine pH (5.0-8.0) Ur Specific [place] (1.005-1.030) Urine Protein (Negative) Urine Glucose (UA) (Negative) Urine Ketones (Negative) Urine Occult Blood (Negative) Urine Nitrite (Negative) Urine Bilirubin (Negative) Urine Urobilinogen (0.2-1.0) Ur Leukocyte Esterase (Negative) Urine RBC (0-5) /hpf Urine WBC (0-5) /hpf Ur Squamous Epith Cells (0-5) /hpf Urine Bacteria (FEW) /hpf Urine Mucus (FEW) /hpf COVID-19 (ROSSY) Negative (NEGATIVE) Meds: Medications Discontinued Medications Generic Name Dose Route Start Last Admin Trade Name Freq PRN Reason Stop Dose Admin Diatrizoate Meglum/Diatrizoate Sod 40 ml 12/22/19 04:43 12/22/19 05:40 Gastrografin 37% PO 12/22/19 04:44 40 ml ONETIME ONE Administration Hydromorphone HCl 0.5 mg 12/22/19 04:32 12/22/19 04:40 Dilaudid IVPUSH 12/22/19 04:33 0.5 mg ONETIME ONE Administration Hydromorphone HCl 0.5 mg 12/22/19 06:50 12/22/19 07:03 Dilaudid IVPUSH 12/22/19 06:51 0.5 mg ONETIME ONE Administration Sodium Chloride 1,000 mls @ 150 mls/hr 12/22/19 04:00 12/22/19 04:06 Normal Saline IV 150 mls/hr ASDIRECTED REYNALDO Administration Piperacillin Sod/Tazobactam 100 mls @ 25 mls/hr 12/22/19 06:52 Sod 4.5 gm/ Sodium Chloride IV 12/22/19 10:51 ONETIME STA Metronidazole 500 mg/ Premix 100 mls @ 100 mls/hr 12/22/19 06:53 12/22/19 07:03 IV 12/22/19 07:52 100 mls/hr ONETIME STA Administration Piperacillin Sod/Tazobactam 100 mls @ 200 mls/hr 12/22/19 07:20 12/22/19 08:41 Sod 4.5 gm/ Sodium Chloride IV 12/22/19 07:49 200 mls/hr ONETIME STA Administration Lactated Ringer's 1,000 mls @ 100 mls/hr 12/22/19 10:45 12/22/19 11:40 Ringers, Lactated IV 100 mls/hr ASDIRECTED REYNALDO Administration Iopamidol 100 ml 12/22/19 04:43 12/22/19 05:40 Isovue-300 (61%) IVPUSH 12/22/19 04:44 100 ml ONETIME ONE Administration Ondansetron HCl 4 mg 12/22/19 03:56 12/22/19 04:07 Zofran IVPUSH 12/22/19 03:57 4 mg ONETIME ONE Administration Ondansetron HCl 4 mg 12/22/19 11:11 12/22/19 11:31 Zofran IVPUSH 12/22/19 11:12 4 mg ONETIME ONE Administration Sodium Chloride 10 ml 12/22/19 04:43 12/22/19 05:40 Saline Flush FLUSH 10 ml ONETIME PRN Administration Keep Vein Open - Re-Assessments/Exams Free Text/Narrative Re-Assessment/Exam: 12/22/19 04:33 As above, the patient developed generalized, constant crampy/achy abdominal pain around 22:00 this evening. She had a small amount of nausea and vomiting here in the ED. She states that she had a small bowel movement yesterday morning, and has not had flatus recently. On examination, she has active bowel sounds, although no rushes or tinkles. She has tenderness across her entire abdomen. A CBC, CMP, and urinalysis were ordered by the patient's nurse. The patient's CBC is unremarkable. Her CMP is remarkable for a sodium mildly elevated at 147, and a Cr lightly elevated at 1.1 with a BUN normal at 15, and the remainder of her CMP being unremarkable. Her urinalysis is unremarkable. Clinically, the patient's presentation is concerning for small bowel obstruction, and less concerning for an intestinal infarct. I have ordered a lipase level and a CT of the abdomen and pelvis with oral and IV contrast. I have also ordered some IV Dilaudid. 12/22/19 06:03 The patient's lipase level has returned within normal limits at 132. 12/22/19 06:43 CT of the abdomen and pelvis with oral and IV contrast as read by [facility] as: Pneumoperitoneum. In the absence of recent surgery or instrumentation consider GI tract perforation as potential etiology. Small bowel obstruction extends to an anterior pelvic hernia sac. SMA stent with atherosclerotic vascular changes distal to the stent. The possibility of ischemic bowel needs to be considered. No definite pneumatosis Recommend clinical correlation and correlation with lactic acid levels. Emergent surgical consultation recommended. Distended urinary bladder. Moderate bilateral renal hydronephrosis likely related to reflux. 12/22/19 06:48 Test results discussed with the patient and her son. Obviously, the patient is going to require surgical consultation. The patient's son would like us to have the patient airlifted to [facility], and states that they are willing to pay for that. 12/22/19 06:58 Case discussed with the [facility] transfer center at 06:51. Case then discussed with Apple, a skill training program coordinator, at 06:53. CT images were pushed to [facility] at 06:56. Apple is going to make sure that the images are received, discuss the situation with a receiving surgeon, then call us back. In the meantime, I have ordered Zosyn 4.5 g IV, and Flagyl 500 mg IV. 12/22/19 07:17 I have entered an order to test for the SARS-CoV-2 virus. 12/22/19 08:06 Called back by Apple at 07:54. Case then discussed with Dr. Dubon, Surgeon on-call at [facility]. She stated that she reviewed the CT scan images. She asked me if we have a Surgeon at this facility, which we do, therefore she refused to accept transfer of the patient, stating that while she is sympathetic to the son's desire to have the patient transferred to [facility], it is not possible for them to accept every patient who might want to come there, and that it is not medically appropriate. She recommended that we have our Surgeon evaluate the patient. The above was then discussed with the patient and her son. The patient's son is not accepting that she cannot be transferred, and stated that he will call [facility] himself. In the meantime, I asked if it would be alright if we had our Surgeon evaluate the patient, which he refused. 12/22/19 08:46 The patient's test for the SARS-CoV-2 virus has returned negative. The patient's son has been on the phone with Edel, who I believe works in the office of the patient's Vascular Surgeon at [facility], Dr. Raul Ibarra. The patient's son asked me to call [facility] back and tell them that it isn't he who wants the patient transferred, it is the patient herself, and that she is refusing to go anywhere else. Call then made to the [facility] transfer center at 08:47. Case discussed with Mary Lou, a transfer nurse at [facility], at 08:49. Mary Lou stated that Dr. Ibarra works in the vascular division, and would therefore not be able to accept the patient himself, which is why I am being asked to have someone else at [facility] accept the patient. Mary Lou stated that she will discuss the situation with Apple, and that either she or Apple will call us back. 12/22/19 09:38 Called back by Apple and Dr. Lima, ED Telemedicine Physician at [facility]. He explained that the final decision to transfer the patient is still Dr. Dubon's, but that they are concerned that the risk of a several-hour transfer to [facility] would likely outweigh any potential benefit. He recommended that I talk to the patient's son and recommend that the patient be evaluated by our Surgeon, and that if our Surgeon feels that the patient needs to be transferred to [facility], that our Surgeon then contact Dr. Dubon, who could then make the final decision. In the meantime, however, they are going to check into the availability of arranging for a fixed wing, in the event that our Surgeon does feel that the patient needs to be transferred. This plan was discussed with the patient and her son. The patient's son agreed to have our Surgeon evaluate his mother. Case then discussed with Dr. Colon at 09:36. He will come to the ED to evaluate the patient. 12/22/19 09:53 Dr. Colon is here. He has reviewed the CT scan images and requested that I order an NG tube and a Ray catheter. He is currently evaluating the patient. 12/22/19 10:08 Dr. Colon has evaluated the patient and agrees that she may need to go to the OR, but that she will be very high risk, so it would be better if it were done at a medical center. If the patient is to be transferred, he feels that it would be best if it were to be done now, as she is currently hemodynamically stable with no peritoneal signs. 12/22/19 10:21 Spoke with Apple at 10:12, then with Dr. Gutierrez, a General Surgeon at [facility], at 10:16, with Dr. Colon at our end. Dr. Gutierrez had also reviewed the CT images, and both Dr. Gutierrez and Dr. Colon feel that the patient is primarily suffering from a small bowel obstruction, and less likely an acute vascular occlusion, partly due to the fact that the patient has remained hemodynamically stable for so many hours with no acute abdomen and no acidosis. Both feel that with NG tube decompression and a Ray catheter, the patient may not have to go to the operating room, however, if the patient's condition decompensates, then it would be far better if she were at [facility] than here, therefore Dr. Gutierrez has agreed for the patient to be transferred to the ED in [place]. Since Dr. Lima had earlier initiated the availability of a fixed wing, they will call us back to make the specific arrangements. I will prepare the necessary paperwork. Departure - Departure Time of Disposition: 10:25 Disposition: DC/Tfer to Acute Hospital 02 Condition: Fair Clinical Impression: Small bowel obstruction - Discharge Information *PRESCRIPTION DRUG MONITORING PROGRAM REVIEWED*: Not Applicable *COPY OF PRESCRIPTION DRUG MONITORING REPORT IN PATIENT MARILY: Not Applicable Referrals: Keven Yun MD [Primary Care Provider] - Kayleen Joseph NP [Ordering Only Provider] - Forms: ED Department Discharge Sepsis Event Note (ED) - Evaluation Sepsis Screening Result: No Definite Risk - My Orders Last 24 Hours: My Active Orders 12/22/19 09:50 Gastrointestinal Tube Mgmt [RC] ASDIRECTED Nasogastric Orogastric Tube Insertion [OM.PC] Routine 12/22/19 09:51 Urinary Catheter Assessment [RC] ASDIRECTED 12/22/19 10:00 Ray Catheter Insertion [Insert Urinary Catheter] [OM.PC] Q24H - Assessment/Plan Last 24 Hours: My Active Orders 12/22/19 09:50 Gastrointestinal Tube Mgmt [RC] ASDIRECTED Nasogastric Orogastric Tube Insertion [OM.PC] Routine 12/22/19 09:51 Urinary Catheter Assessment [RC] ASDIRECTED 12/22/19 10:00 Ray Catheter Insertion [Insert Urinary Catheter] [OM.PC] Q24H
[2019-12-22] MEDS ORDERED: Diatrizoate Meglumine/Diatrizoate Sodium 37% 120 ML Bottle PO ONE (04:43)
[2019-12-22] MEDS ORDERED: Sodium Chloride 0.9% 10 ML Syringe FLUSH PRN (04:43)
[2019-12-22] MEDS ORDERED: Iopamidol 612 MG/ML 100 ML Bottle IVPUSH ONE (04:43)
[2019-12-22] MEDS ORDERED: Piperacillin/Tazobactam 4.5 GM in Sodium Chloride 0.9% 100 ML IV STA ×2 (06:52→07:20)
[2019-12-22] MEDS ORDERED: metroNIDAZOLE/Normal Saline 500 MG in Premix Bag 1 BAG IV STA (06:53)
[2019-12-22] MEDS ORDERED: Lactated Ringers 1,000 ML IV SCH (10:45)
--- NOTE | 2019-12-22 10:47 | PCM.CONS ---
H&P History of Present Illness - General Date of Service: 12/22/19 Source of Information: Patient, Family, Provider History Limitations: Reports: No Limitations - History of Present Illness Other HPI/Comments: Mrs. Guerrero is a 79 yo woman who presented to the emergency room overnight with sudden onset abdominal pain. 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 She reports some nausea and distention since the onset of pain but no vomiting. CT scan with IV and oral contrast shows some locules of free air in the anterior pelvis, with transition in caliber of the small bowel suggesting obstruction. There is no free fluid in the pelvis. She has a large incisional hernia and bladder distention with bilateral hydronephrosis. Clinically, her vital signs are in normal range except for O2 saturation in the high 80% range on room air, her pain is better than when she arrived, and lab work is unremarkable. Her abdomen is distended but soft and minimally tender to palpation. She takes plavix and eliquis. She was treated with radiation alone for early stage lung cancer earlier this year. Abdominal Pain Score (Numeric/FACES): 8 - Related Data Allergies/Adverse Reactions: Allergies Allergy/AdvReac Type Severity Reaction Status Date / Time ticlopidine Allergy Unknown Cannot Verified 12/22/19 01:08 Remember carvedilol [From Coreg] AdvReac Lightheaded Verified 12/22/19 01:08 ness Home Medications: Home Meds Clopidogrel [Plavix] 75 mg PO DAILY 01/08/14 [History] Multivitamin [Multivitamins] 1 cap PO DAILY 06/03/16 [History] Apixaban [Eliquis] 5 mg PO BID 03/11/18 [History] Calcium Carbonate/Vitamin D3 [Calcium 600 + Vit D 400 Softgl] 1 cap PO DAILY 05/07/18 [History] Lactobacillus Reuteri [Biogaia Gastrus] 1 tab PO DAILY 05/07/18 [History] Levothyroxine 75 mcg PO DAILY 05/07/18 [History] Pantoprazole [ProTONIX] 40 mg PO DAILY 05/07/18 [History] Furosemide [Lasix] 20 mg PO DAILY PRN 06/04/18 [History] Metoprolol Tartrate 12.5 mg PO BID 06/04/18 [History] atorvaSTATin Calcium [Lipitor] 40 mg PO DAILY 06/04/18 [History] Acetaminophen with Codeine [Tylenol with Codeine #3 Tablet] 1 each PO DAILY PRN 01/04/19 [History] Benzonatate [Tessalon Perle] 100 mg PO Q6H PRN 04/19/19 [History] Doxycycline Monohydrate [Monodox] 200 mg PO DAILY 04/19/19 [History] Levalbuterol Tartrate [Xopenex Hfa] 2 puff IH Q4H PRN 04/19/19 [History] Losartan [Cozaar] 50 mg PO DAILY 04/19/19 [History] Nitroglycerin [Nitrostat] 0.4 mg SL Q15M PRN 04/19/19 [History] Umeclidinium [place] [Incruse Ellipta*] 1 puff IH DAILY 04/19/19 [History] estradioL [Estrace Vaginal] 1 applic VAG MOFR 04/19/19 [History] methylPREDNISolone [Medrol] 4 mg PO DAILY 04/19/19 [History] Past Medical History HEENT History: Reports: Hard of Hearing (wears hearing aids), Impaired Vision (wears glasses) Other HEENT History: wears eyeglasses and hearing aids Cardiovascular History: Reports: Afib (paroxysmal), CAD, High Cholesterol, Hypertension, NM (1995, 2017), PVD, Other (See Below) (Raynaud's phenomenon) Other Cardiovascular History: Raynaud's phenomenon. Respiratory History: Reports: Bronchitis, Recurrent Gastrointestinal History: Reports: Bowel Obstruction, GERD, GI Bleed, PUD, Other (See Below) (Small and large bowel ischemia/infarct. Small bowel bacterial overgrowth.) Other Gastrointestinal History: Ischemic bowel, bowel resection, melena, duodenal ulcer hemorrhage, GI bleed, achalsia Genitourinary History: Reports: None RESOURCE AGENT History: Reports: Musculoskeletal History: Reports: Fracture (right femur), Osteoarthritis, Osteop orosis Neurological History: Reports: Other (See Below) Other Neuro History: dizziness, neck surgery Psychiatric History: Reports: None Endocrine/Metabolic History: Reports: Diabetes, Type II (diet controlled), Hypothyroidism Other Endocrine/Metabolic History: diet controlled, takes no meds. Hematologic History: Reports: Blood Transfusion(s) Immunologic History: Reports: None Oncologic (Cancer) History: Reports: Lung (s/p RTx) Dermatologic History: Reports: None - Infectious Disease History Infectious Disease History: Reports: Chicken Pox, Measles, Shingles - Past Surgical History HEENT Surgical History: Reports: Cataract Surgery (bilateral), Oral Surgery (wisdom teeth extraction) Cardiovascular Surgical History: Reports: Coronary Artery Stent (x 3), Vascular Surgery (Bilateral iliac or femoral artery stents. Stent to SMA 2017) GI Surgical History: Reports: Colon (hemicolectomy 2007), Colonoscopy (x 4 or 5), EGD (x 4 or 5), Hernia, Abdominal (umbilical), Small Bowel (resection 2013, 2017) Female Surgical History: Reports: Section (x 6), Hysterectomy (complete) Neurological Surgical History: Reports: C-Spine (ACDF) Musculoskeletal Surgical History: Reports: ORIF (right femur) Social & Family History - Family History Family Medical History: Noncontributory - Tobacco Use Smoking Status *Q: Former Smoker Years of Tobacco use: 20 Packs/Tins Daily: 1 Used Tobacco, but Quit: Yes Month/Year Tobacco Last Used: Quit 1995 - Caffeine Use Caffeine Use: Reports: None - Recreational Drug Use Recreational Drug Use: No - Living Situation & Occupation Living situation: Reports: , with Spouse, with Family (Son) 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) H&P Review of Systems - Review of Systems: Review Of Systems: See Below General: Reports: Malaise HEENT: Reports: No Symptoms Pulmonary: Reports: No Symptoms Cardiovascular: Reports: Dyspnea on Exertion Gastrointestinal: Reports: Abdominal Pain, Anorexia, Flatus, Nausea Genitourinary: Reports: No Symptoms Musculoskeletal: Reports: No Symptoms Skin: Reports: No Symptoms Psychiatric: Reports: No Symptoms Neurological: Reports: No Symptoms Hematologic/Lymphatic: Reports: No Symptoms Immunologic: Reports: No Symptoms Exam - Exam Exam: See Below - Vital Signs Vital Signs: Last Vital Signs Temp 37.0 C 12/22/19 07:30 Pulse 84 12/22/19 07:30 Resp 18 12/22/19 07:30 BP 156/74 H 12/22/19 07:30 Pulse Ox 97 12/22/19 07:30 Weight: 60.781 kg - Exam General: Alert, Oriented, Cooperative HEENT: Conjunctiva Clear Neck: Trachea Midline Lungs: Normal Respiratory Effort Cardiovascular: Regular Rate, Regular Rhythm GI/Abdominal Exam: Soft, Distended, Tender, Hernia, Other (prior large laparotomy incision, with RUQ transverse incision from prior ostomy) Skin: Warm, Dry Neuro Extensive - Mental Status: Alert, Oriented x3, Normal Mood/Affect Psychiatric: Normal Mood - Patient Data Lab Results Last 24 hrs: Laboratory Results - last 24 hr 12/22/19 12/22/19 12/22/19 Range/Units 01:30 01:43 01:43 WBC 6.36 (3.98-10.04) K/mm3 RBC 4.20 (3.98-5.22) M/mm3 Hgb 12.6 (11.2-15.7) gm/dl Hct 40.4 (34.1-44.9) % MCV 96.2 H D (79.4-94.8) fl MCH 30.0 (25.6-32.2) pg MCHC 31.2 L (32.2-35.5) g/dl RDW Std Deviation 52.7 H (36.4-46.3) fL Plt Count 218 (182-369) K/mm3 MPV 9.0 L (9.4-12.3) fl Neut % (Auto) 72.2 H (34.0-71.1) % Lymph % (Auto) 14.5 L (19.3-51.7) % [place] % (Auto) 9.3 (4.7-12.5) % Eos % (Auto) 3.5 (0.7-5.8) Baso % (Auto) 0.3 (0.1-1.2) % Neut # (Auto) 4.60 (1.56-6.13) K/mm3 Lymph # (Auto) 0.92 L (1.18-3.74) K/mm3 [place] # (Auto) 0.59 H (0.24-0.36) K/mm3 Eos # (Auto) 0.22 (0.04-0.36) K/mm3 Baso # (Auto) 0.02 (0.01-0.08) K/mm3 Sodium 147 H (136-145) mEq/L Potassium 3.5 (3.5-5.1) mEq/L Chloride 106 (98-107) mEq/L Carbon Dioxide 30 (21-32) mEq/L Anion Gap 14.5 (5-15) BUN 15 (7-18) mg/dL Creatinine 1.1 H (0.55-1.02) mg/dL Est Cr Clr Drug Dosing 38.54 mL/min Estimated GFR (MDRD) 48 (>60) mL/min BUN/Creatinine Ratio 13.6 L (14-18) Glucose 115 (83-115) mg/dL Calcium 9.3 (8.5-10.1) mg/dL Total Bilirubin 0.5 (0.2-1.0) mg/dL AST 16 (15-37) U/L ALT 22 (14-59) U/L Alkaline Phosphatase 78 (46-116) U/L Total Protein 7.5 (6.4-8.2) g/dl Albumin 3.9 (3.4-5.0) g/dl Globulin 3.6 gm/dL Albumin/Globulin Ratio 1.1 (1-2) Lipase (73-393) U/L Urine Color Light yellow (Yellow) Urine Appearance Clear (Clear) Urine pH 7.0 (5.0-8.0) Ur Specific [place] 1.020 (1.005-1.030) Urine Protein 1+ H (Negative) Urine Glucose (UA) Negative (Negative) Urine Ketones Negative (Negative) Urine Occult Blood 1+ H (Negative) Urine Nitrite Negative (Negative) Urine Bilirubin Negative (Negative) Urine Urobilinogen 0.2 (0.2-1.0) Ur Leukocyte Esterase Trace H (Negative) Urine RBC 0-5 (0-5) /hpf Urine WBC 0-5 (0-5) /hpf Ur Squamous Epith Cells 0-5 (0-5) /hpf Urine Bacteria Few (FEW) /hpf Urine Mucus Not seen (FEW) /hpf COVID-19 (ROSSY) (NEGATIVE) 12/22/19 12/22/19 Range/Units 01:43 07:16 WBC (3.98-10.04) K/mm3 RBC (3.98-5.22) M/mm3 Hgb (11.2-15.7) gm/dl Hct (34.1-44.9) % MCV (79.4-94.8) fl MCH (25.6-32.2) pg MCHC (32.2-35.5) g/dl RDW Std Deviation (36.4-46.3) fL Plt Count (182-369) K/mm3 MPV (9.4-12.3) fl Neut % (Auto) (34.0-71.1) % Lymph % (Auto) (19.3-51.7) % [place] % (Auto) (4.7-12.5) % Eos % (Auto) (0.7-5.8) Baso % (Auto) (0.1-1.2) % Neut # (Auto) (1.56-6.13) K/mm3 Lymph # (Auto) (1.18-3.74) K/mm3 [place] # (Auto) (0.24-0.36) K/mm3 Eos # (Auto) (0.04-0.36) K/mm3 Baso # (Auto) (0.01-0.08) K/mm3 Sodium (136-145) mEq/L Potassium (3.5-5.1) mEq/L Chloride (98-107) mEq/L Carbon Dioxide (21-32) mEq/L Anion Gap (5-15) BUN (7-18) mg/dL Creatinine (0.55-1.02) mg/dL Est Cr Clr Drug Dosing mL/min Estimated GFR (MDRD) (>60) mL/min BUN/Creatinine Ratio (14-18) Glucose (83-115) mg/dL Calcium (8.5-10.1) mg/dL Total Bilirubin (0.2-1.0) mg/dL AST (15-37) U/L ALT (14-59) U/L Alkaline Phosphatase (46-116) U/L Total Protein (6.4-8.2) g/dl Albumin (3.4-5.0) g/dl Globulin gm/dL Albumin/Globulin Ratio (1-2) Lipase 132 (73-393) U/L Urine Color (Yellow) Urine Appearance (Clear) Urine pH (5.0-8.0) Ur Specific [place] (1.005-1.030) Urine Protein (Negative) Urine Glucose (UA) (Negative) Urine Ketones (Negative) Urine Occult Blood (Negative) Urine Nitrite (Negative) Urine Bilirubin (Negative) Urine Urobilinogen (0.2-1.0) Ur Leukocyte Esterase (Negative) Urine RBC (0-5) /hpf Urine WBC (0-5) /hpf Ur Squamous Epith Cells (0-5) /hpf Urine Bacteria (FEW) /hpf Urine Mucus (FEW) /hpf COVID-19 (ROSSY) Negative (NEGATIVE) Result Diagrams: 12/22/19 01:43 12/22/19 01:43 Sepsis Event Note - Evaluation Sepsis Screening Result: No Definite Risk - Focused Exam Vital Signs: Vital Signs Temp Pulse Resp BP Pulse Ox 12/22/19 07:30 37.0 C 84 18 156/74 H 97 12/22/19 00:49 36.6 C 91 16 175/71 H 97 Date Exam was Performed: 12/22/19 Time Exam was Performed: 10:37 Consult PN Assessment/Plan Procedures: Procedures ASSAY OF CK (CPK) (01/09/14) ASSAY OF FREE THYROXINE (05/08/18) ASSAY OF LACTIC ACID (06/03/16) ASSAY OF LIPASE (06/03/16) ASSAY OF MAGNESIUM (04/19/19) ASSAY OF NATRIURETIC PEPTIDE (03/11/18) ASSAY OF TROPONIN QUANT (04/19/19) ASSAY THYROID STIM HORMONE (04/19/19) AUTOMATED RETICULOCYTE COUNT (10/25/13) BL SMEAR W/DIFF WBC COUNT (01/04/19) BLOOD GASES ANY COMBINATION (03/21/18) BONE IMAGING 3 PHASE (09/16/14) C-REACTIVE PROTEIN (03/11/18) CARDIAC REHAB/MONITOR (05/28/18) CHEST X-RAY 1 VIEW FRONTAL (01/09/14) COMPLETE CBC AUTOMATED (01/04/19) COMPLETE CBC W/AUTO DIFF WBC (04/19/19) COMPREHEN METABOLIC PANEL (04/19/19) CREATINE MB FRACTION (05/08/18) CT ABD & PELV W/CONTRAST (01/04/19) CT ABD & PELVIS W/O CONTRAST (01/09/14) CT ANGIOGRAPHY CHEST (03/02/18) CT HEAD/BRAIN W/O DYE (01/09/14) DXA BONE DENSITY AXIAL (04/03/16) ELECTROCARDIOGRAM TRACING (04/19/19) EMERGENCY DEPT VISIT (04/19/19) EMERGENCY DEPT VISIT (07/24/18) EMERGENCY DEPT VISIT (05/08/18) EMERGENCY DEPT VISIT (03/11/18) EMERGENCY DEPT VISIT (03/02/18) EXC F/E/E/N/L MAL+MRG 2.1-3 (06/05/18) EXC F/E/E/N/L MAL+MRG 3.1-4 (06/29/18) EXC FACE-MM B9+ADITHYA 1.1-2 CM (06/05/18) EXTRACRANIAL BILAT STUDY (01/09/14) FIBRIN DEGRADATION QUANT (03/08/19) GLUCOSE BLOOD TEST (06/29/18) GLYCOSYLATED HEMOGLOBIN TEST (05/08/18) HYDRATE IV INFUSION ADD-ON (01/04/19) HYDRATION IV INFUSION INIT (04/19/19) INFLUENZA ASSAY W/OPTIC (07/24/18) LACTATE (LD) (LDH) ENZYME (10/25/13) METABOLIC PANEL TOTAL CA (05/08/18) OT EVAL LOW COMPLEX 30 MIN (05/08/18) PROTHROMBIN TIME (03/11/18) PT EVAL LOW COMPLEX 20 MIN (05/08/18) ROUTINE VENIPUNCTURE (04/19/19) THER/PROPH/DIAG INJ IV PUSH (01/04/19) THER/PROPH/DIAG INJ SC/IM (07/24/18) THER/PROPH/DIAG IV INF ADDON (05/08/18) THER/PROPH/DIAG IV INF INIT (05/08/18) TISSUE EXAM BY PATHOLOGIST (06/05/18) TTE W/DOPPLER COMPLETE (05/08/18) TX/PRO/DX INJ NEW DRUG ADDON (01/04/19) TX/PRO/DX INJ SAME DRUG STOCK LAYER (05/08/18) URINALYSIS AUTO W/SCOPE (01/04/19) WITHDRAWAL OF ARTERIAL BLOOD (03/21/18) X-RAY EXAM CHEST 1 VIEW (04/19/19) X-RAY EXAM CHEST 2 VIEWS (07/26/18) Problem List Initiated/Reviewed/Updated: Yes Plan: Finding of pneumoperitoneum in patient presenting with abdominal pain and history of multiple bowel resections and SMA stenting. I was called to see the patient at [id number] this morning after attempts had been made to arrange for transfer to [facility] per family request. Although the pneumoperitoneum, noted on scan several hours prior to my exam, is concerning for bowel perforation, the patient appears to be in no distress and is hemodynamically stable. Her pain seems to be more from bowel obstruction than from a primary vascular issue. The patient is very high risk for emergency surgery. Currently, an immediate operation is not mandated based on clinical assessment. She may have a small contained perforation that can be managed with antibiotics and NG decompression. Should she get worse, I think it is in her best interest to be in a medical center with more resources available than here in [place]. There is currently a window for safe transfer, and I discussed this with Dr. Gutierrez at [facility]; we agree that it would be prudent to have the patient transferred now to the emergency room at [facility] for evaluation and treatment. I agree with initiation of broad-spectrum antibiotics. I recommend NG decompression and boyle catheter placement prior to transfer. Requesting Provider: Marline Date Consult Requested: 12/22/19 Reason for Consult: pneumoperitoneum Patient History Reviewed: Yes Admission H&P Reviewed: Yes Notified Requestor: Yes Time Spent (in minutes): 60
--- NOTE | 2019-12-22 12:11 | CR ---
Chest: Frontal view of the chest was obtained centered to the diaphragms. Comparison: Prior chest x-ray of 04/19/19. Heart is slightly enlarged. Tortuous thoracic aorta is seen. Questionable parenchymal density or mass within the upper right chest which is noted on prior chest x-ray. Nasogastric tube is seen. Tip lies slightly past the gastroesophageal junction. Side port remains above the gastroesophageal junction. Impression: 1. Mass or parenchymal density with the right upper chest which is seen on prior chest x-ray. 2. Tip of nasogastric tube slightly past the gastroesophageal junction and should be advanced by another 7-10 cm for optimal position. Diagnostic code #9 This report was dictated in MDT
[2019-12-22 13:56] VITALS: BP 150/68; PULSE 100
--- NOTE | 2019-12-22 15:24 | CT ---
CT abdomen and pelvis Technique: Multiple axial sections were obtained from above the dome of the diaphragm inferiorly through the pubic symphysis. Intravenous contrast and oral contrast has been given. Comparison: Prior CT abdomen and pelvis exam of 01/04/19. Findings: Visualized lung bases show nothing acute. Heart is enlarged. Moderately large hiatal hernia is seen with gastroesophageal reflux of contrast. Interim and extrahepatic biliary duct dilatation is seen. This finding is stable from previous exam. Adrenal glands show no nodule. Pancreas shows no discrete abnormality. Extrarenal pelvis is noted within both kidneys. Dilated right ureter is seen to the bladder. Findings most likely relate to an element of bladder outlet obstruction. Aorta shows atherosclerotic calcification with atherosclerotic calcification also seen within the branch vessels. Superior mesenteric artery stent is noted. Atherosclerotic change is noted distal to the stent with areas of possible narrowing within the proximal superior mesenteric arteries distal to the stent. No retroperitoneal adenopathy or mesenteric abnormalities are seen. Anterior abdominal wall hernia is seen containing loops of small bowel. Dilated small bowel loops are noted. Ileal loops show decompression. Difficult to exclude a distal small bowel obstruction. There is a small amount of free air being seen within the abdomen with slightly gas dilated cecum and right colon being seen. Delayed images shows contrast within the ureters as well as contrast within the bladder. Bone window settings were reviewed which show scattered degenerative change within the spine. Impression: 1. Small bowel dilatation involving jejunum and proximal ileal loops. Distal ileal loops are decompressed. Uncertain if findings represent small bowel obstruction or if findings represent small bowel ileus from ischemia. 2. Gas dilated right colon and cecum. 3. Small amount of free air raising the possibility of bowel perforation. 4. Atherosclerotic change within the aorta and branch vessels. Superior mesenteric artery stent noted proximally with possible narrowing of the SMA more distal to the stent and difficult to exclude finding significant enough to cause bowel ischemia. 5. Other findings which are nonacute as described above. Diagnostic code #5 This report was dictated in MDT I agree with preliminary report from abigail, finalized on 12/22/19, 7:25 AM Central Daylight Time
== END 2019-12-22 12:05 ==
LOC: JD.ED 00:31
DX: K56.609 Unspecified intestinal obstruction, unspecified as to partial versus complete obstruction (principal); I48.91 Unspecified atrial fibrillation; I25.10 Atherosclerotic heart disease of native coronary artery without angina pectoris; E78.00 Pure hypercholesterolemia, unspecified; I10 Essential (primary) hypertension; K21.9 Gastro-esophageal reflux disease without esophagitis; E11.51 Type 2 diabetes mellitus with diabetic peripheral angiopathy without gangrene; M19.90 Unspecified osteoarthritis, unspecified site; I25.2 Old myocardial infarction; E03.9 Hypothyroidism, unspecified; Z87.891 Personal history of nicotine dependence; Z88.8 Allergy status to other drugs, medicaments and biological substances; Z20.828 Contact with and (suspected) exposure to other viral communicable diseases; Z79.01 Long term (current) use of anticoagulants; Z79.02 Long term (current) use of antithrombotics/antiplatelets; Z79.899 Other long term (current) drug therapy
CPT/HCPCS: 36415; 43752; 51702; 74177; 80053; 81001; 83690; 85025; 96361; 96365; 96367; 96375; 96376; 99285; J1170; J2405; J2543; J3490; J7030; J7050; J7120; Q9963; Q9967; U0002